=== PATIENT | male | born 1965 | race Caucasian/White ===

== ENCOUNTER 2016-12-25 08:03 | Inpatient (IN) ==
[2016-12-25] MEDS ORDERED: Nitroglycerin 0.4 MG TAB.SUBL SL ONE (08:11)
--- NOTE | 2016-12-25 08:15 | Emergency Department Note ---
Disposition Clinical Impression: NSTEMI (non-ST elevated myocardial infarction) Chest pain Qualifiers: Chest pain type: precordial pain Qualified Code(s): R07.2 - Precordial pain Disposition: Admitted As Inpatient Condition: Serious Time of Disposition: 11:12 Chest Pain HPI - General Chief Complaint: ED Chest Pain Stated Complaint: chest pain Source: patient Limitations: no limitations Vital Signs Reviewed: Yes Nursing Notes Reviewed: Yes - History of Present Illness HPI Narrative: Patient is a 51-year-old male history of 2 prior MIs and one stent placed [place] [address] Mcnulty at [facility]. Patient states he had chest pain while walking dog this morning. Chest pressuresubsternal without radiation. Patient states pain 8 out of 10 in severity. Patient history of diabetes, hypertension , CAD Patient states he has been noncompliant with his medications 3 months. Patient currently smokes one pack per day, admits to marijuana, alcohol use, denies illicit drug use. Severity scale (1-10): 6 - Related Data Home Medications Medication Instructions Recorded Confirmed Albuterol Sulfate [Ventolin Hfa] 18 gm IH PRN PRN 12/25/16 12/25/16 Aspirin [Lo-Dose Aspirin EC] 81 mg PO BID 12/25/16 12/25/16 Gabapentin [Neurontin] 300 mg PO TID 12/25/16 12/25/16 GlipiZIDE 5 mg PO BID 12/25/16 12/25/16 Lisinopril [Zestril] 40 mg PO DAILY 12/25/16 12/25/16 Nitroglycerin [Nitrostat] 0.4 mg SL PRN PRN 12/25/16 12/25/16 Quetiapine Fumarate [SEROquel] 100 mg PO HS 12/25/16 12/25/16 Simvastatin [Zocor] 20 mg PO HS 12/25/16 12/25/16 metFORMIN [Glucophage] 1,000 mg PO BIDWM 12/25/16 12/25/16 Allergies Allergy/AdvReac Type Severity Reaction Status Date / Time Sulfadiazine Allergy Hives Verified 12/25/16 08:14 All systems ED: reviewed and negative except as stated. Review of Systems: As Per HPI Constitutional: Denies: fever, chills Eyes: Denies: vision change ENT ED: Denies: congestion Cardiovascular: Reports: chest pain. Denies: palpitations Respiratory: Denies: cough, dyspnea, wheezes Gastrointestinal: Denies: abdominal pain, nausea, vomiting, diarrhea Chest Pain PMH - Past Medical History Medical history: Reports: arthritis, COPD, diabetes, myocardial infarction - Social History Smoking Status: Current every day smoker Alcohol use: Reports: occasionally Drug use: Reports: marijuana Physical Exam Patient is a 51-year-old male is alert and oriented 3 in no acute distress. Patient does appear uncomfortable secondary to chest pain. Patient currently not diaphoretic. - General Limitations: no limitations General appearance: alert, in no apparent distress - Head Head exam: atraumatic, normocephalic, normal inspection - Eye Eye exam: Present: normal appearance, PERRL, EOMI - ENT ENT exam: normal exam, normal oropharynx, mucous membranes moist - Neck Neck exam: Present: normal inspection, full ROM, trachea midline - Chest Chest inspection: Present: normal inspection, symmetric chest wall rise - Respiratory Respiratory exam: Present: normal lung sounds bilaterally - Cardiovascular Cardiovascular exam: Present: regular rate, normal rhythm, normal heart sounds - Abdominal Exam Abdominal exam: Present: soft, Non-Tender. Absent: tenderness, distention, guarding, rebound, rigidity - Extremities Exam Extremities exam: Present: normal inspection, full ROM. Absent: tenderness, pedal edema - Back Exam Back exam: Present: normal inspection, full ROM. Absent: tenderness, CVA tenderness (R), CVA tenderness (L) - Neurological Exam Neurological exam: Present: alert, oriented X3, CN II-XII intact - Skin Skin exam: Present: warm, dry, intact, normal color. Absent: diaphoresis Course - Reevaluation(s) Reevaluation #1: Patient was seen and examined. Troponin, CBC, BMP, coags, chest x-ray ordered nitroglycerin 1 ordered Time: 08:11 Reevaluation #2: Patient complaining of back pain 5/10 which he states is normal for him. Patient's chest pain decreasing. Started patient on nitroglycerin drip - Consultations Consultation #1: Dr. Pam Saha of interventional cardiology states that she agrees patient does not meet criteria after serial EKGs but ascending nurse practitioner down to assess him. She recommends doing another EKG to see if he have any changes to meet criteria right now. She does not think that he needs to be catheterized at this moment. Time: 09:57 Consultation #2: Dr. Mckeon the hospitalist has accepted pt for admission at 1043hrs Time: 10:43 Vital Signs Temperature 98.7 F 12/25/16 08:04 Pulse Rate 84 12/25/16 08:04 Respiratory Rate 16 12/25/16 08:04 Blood Pressure 141/85 12/25/16 08:04 O2 Sat by Pulse Oximetry 96 12/25/16 08:04 Temperature 97.7 F 12/25/16 19:44 Pulse Rate 74 12/25/16 19:44 Respiratory Rate 16 12/25/16 19:44 Blood Pressure 109/56 12/25/16 19:44 O2 Sat by Pulse Oximetry 98 12/25/16 19:44 Oxygen Delivery Oxygen Delivery Nasal Cannula Chest Pain - MDM Narrative Medical decision making narrative: Patient's condition concerning for ACS/MS, unstable angina NSTEMI, PE, aortic dissection, pneumonia, pneumothorax pneumonia less likely at this time. Patient is afebrile no cough congestion patient maintained O2 sats above 96 and denies pleuritic chest pain. Patient's chest pain without radiation to his back and has bilateral equal radial pulses. No pulse discrepancies in any extremity. Patient does have high risk cardiac history. Heart score is 7. EKG changes do not meet criteria. Serial EKGs were taken but did not show progression to STEMI. Troponin came back +0.05. Patient started on aspirin by EMS. Patient received 2 rounds nitroglycerin by EMS which reduced patient's pain from 8/10-6/ 10. Patient received 1 more round of nitroglycerin here in the ED and was started on a nitroglycerin drip at 30 mcg/m that was increased to 40 mcg/m. Patient's pain was reduced to 0. Patient has chronic back pain issues that he is experiencing but no longer has this chest pain. After discussion with Antwan Mcintosh of cardiology; it was adjusted to discuss case with Dr. Pam Saha of interventional cardiology. They assessed the patient and after assessment did not recommend catheterization. They stated that if patient's condition worsens they will consider catheterization. Patient is admitted and accepted to inpatient care by Dr. Mckeon the hospitalist. - Lab Data Result diagrams: 12/25/16 08:25 12/25/16 08:25 Lab Results 12/25/16 12/25/1617 Range/Units 08:25 08:25 08:25 WBC 15.5 H (4.3-11.1) K/mcL RBC 6.12 H (4.19-5.50) M/mcL Hgb 16.3 (12.9-16.9) g/dL Hct 49.3 (37.5-50.1) % MCV 80.6 L (83.0-100.0) fL MCH 26.6 L (28.0-33.3) pg MCHC 33.1 (31.6-35.5) g/dL RDW 13.2 (11.5-14.5) % Plt Count 216 (140-400) K/mcL MPV 10.9 (9.4-12.4) fL Immature Gran % 0.5 (0-4) % Seg Neutrophils % 81.3 % Lymphocytes % 12.2 % Monocytes % 4.3 % Eosinophils % 1.1 % Basophils % 0.6 % Neutrophils # 12.6 H (1.6-8.9) K/mcL Lymphocytes # 1.9 (0.6-4.6) K/mcL Monocytes # 0.7 (0.0-1.3) K/mcL Eosinophils # 0.2 (0.0-0.6) K/mcL Basophils # 0.1 (0.0-0.2) K/mcL Immature Plt Fraction 10.5 H (1.1-6.1) % PT 11.3 (9.4-12.1) Seconds INR 1.1 APTT 31.6 (26.0-36.0) Seconds Sodium 135 L (136-145) mEq/L Potassium 4.1 (3.5-4.5) mEq/L Chloride 102 (98-109) mEq/L Carbon Dioxide 23 (19-29) mEq/L BUN 7 L (8-26) mg/dL Creatinine 0.89 (0.72-1.25) mg/dL Est GFR ( Amer) > 60 (> 60) Est GFR (Non-Af Amer) > 60 (> 60) BUN/Creatinine Ratio 8 (6-26) Glucose 212 H (70-99) mg/dL Est Mean Plasma Glucose mg/dl Hemoglobin A1c ( - 5.6) % Calculated Osmolality 284 (280-300) Calcium 9.4 (8.6-10.8) mg/dL Troponin I (0-0.03) ng/mL Stool Occult Blood (Negative) 12/25/16 12/25/16 12/25/16 Range/Units 08:25 09:11 13:54 WBC (4.3-11.1) K/mcL RBC (4.19-5.50) M/mcL Hgb (12.9-16.9) g/dL Hct (37.5-50.1) % MCV (83.0-100.0) fL MCH (28.0-33.3) pg MCHC (31.6-35.5) g/dL RDW (11.5-14.5) % Plt Count (140-400) K/mcL MPV (9.4-12.4) fL Immature Gran % (0-4) % Seg Neutrophils % % Lymphocytes % % Monocytes % % Eosinophils % % Basophils % % Neutrophils # (1.6-8.9) K/mcL Lymphocytes # (0.6-4.6) K/mcL Monocytes # (0.0-1.3) K/mcL Eosinophils # (0.0-0.6) K/mcL Basophils # (0.0-0.2) K/mcL Immature Plt Fraction (1.1-6.1) % PT (9.4-12.1) Seconds INR APTT (26.0-36.0) Seconds Sodium (136-145) mEq/L Potassium (3.5-4.5) mEq/L Chloride (98-109) mEq/L Carbon Dioxide (19-29) mEq/L BUN (8-26) mg/dL Creatinine (0.72-1.25) mg/dL Est GFR ( Amer) (> 60) Est GFR (Non-Af Amer) (> 60) BUN/Creatinine Ratio (6-26) Glucose (70-99) mg/dL Est Mean Plasma Glucose 160 mg/dl Hemoglobin A1c 7.2 H ( - 5.6) % Calculated Osmolality (280-300) Calcium (8.6-10.8) mg/dL Troponin I 0.05 H* (0-0.03) ng/mL Stool Occult Blood Negative (Negative) 12/25/16 Range/Units 13:54 WBC (4.3-11.1) K/mcL RBC (4.19-5.50) M/mcL Hgb (12.9-16.9) g/dL Hct (37.5-50.1) % MCV (83.0-100.0) fL MCH (28.0-33.3) pg MCHC (31.6-35.5) g/dL RDW (11.5-14.5) % Plt Count (140-400) K/mcL MPV (9.4-12.4) fL Immature Gran % (0-4) % Seg Neutrophils % % Lymphocytes % % Monocytes % % Eosinophils % % Basophils % % Neutrophils # (1.6-8.9) K/mcL Lymphocytes # (0.6-4.6) K/mcL Monocytes # (0.0-1.3) K/mcL Eosinophils # (0.0-0.6) K/mcL Basophils # (0.0-0.2) K/mcL Immature Plt Fraction (1.1-6.1) % PT (9.4-12.1) Seconds INR APTT (26.0-36.0) Seconds Sodium (136-145) mEq/L Potassium (3.5-4.5) mEq/L Chloride (98-109) mEq/L Carbon Dioxide (19-29) mEq/L BUN (8-26) mg/dL Creatinine (0.72-1.25) mg/dL Est GFR ( Amer) (> 60) Est GFR (Non-Af Amer) (> 60) BUN/Creatinine Ratio (6-26) Glucose (70-99) mg/dL Est Mean Plasma Glucose mg/dl Hemoglobin A1c ( - 5.6) % Calculated Osmolality (280-300) Calcium (8.6-10.8) mg/dL Troponin I 0.78 H* (0-0.03) ng/mL Stool Occult Blood (Negative) - EKG Data EKG attestation: Yes I reviewed and interpreted this EKG. EKG results narrative: EKG taken for December 2016 and 803 hrs. shows a sinus rhythm with very mild ST elevation in lead 2 possibly 3 and aVF no reciprocal changes. Patient has T- wave inversion in aVL. Bruits EKG for comparison does not show elevations in II , III, and F area. That shows sinus rhythm at 68 bpm with some hyperacute T waves in V3 for the fact. No QT prolongation OR S4. This EKG was taken 2010. Repeat EKG taken at 0831 hours shows sinus rhythm shows an increase elevation in 23 and aVF but still does not meet criteria for STEMI. Decrease and T-wave inversion in aVL Repeat EKG taken at 0855 hrs. shows no change from previous Heart Score - Score History: Highly Suspicious EKG: Non Specific repolarisation Disturbance Age: 45-65 Risk Factors: Equal/Greater than 3 risk factor or history of atherosclerotic disease Troponin: 1-3x normal limit HEART Score Total: 7
[2016-12-25 08:32] LABS: Basophils # 0.1 K/mcL (0.0-0.2); Basophils % 0.6 %; Eosinophils # 0.2 K/mcL (0.0-0.6); Eosinophils % 1.1 %; Hematocrit 49.3 % (37.5-50.1); Hemoglobin 16.3 g/dL (12.9-16.9); Immature Granulocytes % 0.5 % (0-4); Immature Platelets 10.5 % (1.1-6.1); Lymphocytes # 1.9 K/mcL (0.6-4.6); Lymphocytes % 12.2 %; Mean Corpuscular HGB Conc 33.1 g/dL (31.6-35.5); Mean Corpuscular Hemoglobin 26.6 pg (28.0-33.3); Mean Corpuscular Volume 80.6 fL (83.0-100.0); Mean Platelet Volume 10.9 fL (9.4-12.4); Monocytes # 0.7 K/mcL (0.0-1.3); Monocytes % 4.3 %; Neutrophils # 12.6 K/mcL (1.6-8.9); Platelet Count 216 K/mcL (140-400); Red Blood Count 6.12 M/mcL (4.19-5.50); Red Cell Distribution Width 13.2 % (11.5-14.5); Segmented Neutrophils % 81.3 %
[2016-12-25] MEDS ORDERED: Nitroglycerin 25 MG/250 ML INFUS..BTL IVC ONE (08:38)
[2016-12-25 08:39] LABS: INR 1.1; Prothrombin Time 11.3 Seconds (9.4-12.1)
[2016-12-25 08:41] LABS: Activated Partial Thrombo Time 31.6 Seconds (26.0-36.0)
[2016-12-25 08:44] LABS: BUN/Creatinine Ratio 8 (6-26); Blood Urea Nitrogen 7 mg/dL (8-26); Calcium 9.4 mg/dL (8.6-10.8); Carbon Dioxide 23 mEq/L (19-29); Chloride 102 mEq/L (98-109); Glucose 212 mg/dL (70-99); Osmolality,Calculated 284 (280-300); Potassium 4.1 mEq/L (3.5-4.5); Sodium 135 mEq/L (136-145); eGFR For African Americans > 60 (> 60); eGFR For Non-African Americans > 60 (> 60)
[2016-12-25] MEDS ORDERED: 0.9 % Sodium Chloride 1,000 ML ONE (08:44)
[2016-12-25] MEDS ORDERED: Nitroglycerin 25 MG/250 ML INFUS..BTL IVC SCH ×2 (08:45→08:46)
[2016-12-25] MEDS ORDERED: 0.9 % Sodium Chloride 1,000 ML IVC SCH (09:00)
[2016-12-25] MEDS ORDERED: Ondansetron 4 MG/2 ML VIAL IVP PRN ×2 (09:12→13:36)
--- NOTE | 2016-12-25 09:57 | Emergency Department Note ---
START Narrative - START START: I examined this patient and my medical decision-making was reviewed with the Resident Physician. I agree with the documented findings, disposition and treatment plan as described except to the extent set forth below. Chest pain consistent with ischemia we will came up from sleep at 0400. Consistent with pain that he had in the past that led to stent placement. Serial EKGs were borderline, with about 0.[address] elevation in the inferior leads as well as the lateral precordial leads, but not meeting STEMI criteria, and with no reciprocal change. Pain improved and eventually resolved with nitroglycerin administration. A total of 3 EKGs never reached the criteria for STEMI. Initial troponin is mildly elevated. Case was discussed with the cardiology team, they have reviewed the EKGs, agree with management at this point. He will require catheterization, but not on an emergent basis. Critical care time: I was directly and primarily involved in the care of this patient for 35 minutes excluding procedures.
--- NOTE | 2016-12-25 10:07 | Cardiology Consult Note ---
Date of Encounter: 12/25/16 Time of Encounter: 10:05 Assessment and Plan (1) Chest pain Current Visit: Yes Status: Acute Per Cardiology: Somewhat atypical, however trop 0.05. CP relieved with NTG gtt. Has chronic CP at home for past 3 yrs since last LHC. Patient ran out of meds recently. Not using SL NTG at home. Qualifiers: Chest pain type: precordial pain Qualified Code(s): R07.2 - Precordial pain (2) NSTEMI (non-ST elevated myocardial infarction) Current Visit: Yes Status: Acute Per Cardiology: ECGs reviewed by Dr. Saha, no criteria for STEMI. Mild trop 0.05, cycle trops. CP free now on NTG gtt. Now on IV Hep gtt. Monitor CBC-- H&H stable. We' ll add aspirin, statin, beta katherine. Check echo. Plan for left heart catheterization in the morning. Currently chest pain-free. Patient verbalized understanding and agreed with plan. Discussed and reviewed with Dr. Antwan Saha. CR consult placed. (3) Medical non-compliance Current Visit: Yes Status: Acute Per Cardiology: Poor medical compliance. Reports off meds for 3 months. Questionable historian- - Reports follows with Dr. Mcnulty (Cardiology) past few months, however no records noted. Reports had echo this am, however not ordered yet. Will attempt to obtain LHC from [facility] reported 06/2013. Discussion w patient/family: The assessment and plan as outlined above was discussed with the patient and/or family members who expressed understanding and agreement. All questions were answered. Thank you for involving us in the care of your patient. Please call with any questions. History of Present Illness Consult date: 12/25/16 Consult reason: CP, Elevated Trop Chief complaint: CP History of present illness: Mr. Saunders is a 51 year old male with a relevant PMH: CAD, DM2, HTN, nicotine abuse. He reports last LHC 06/2013 after being sent to [facility] and reports stent at that time and another "2 blockages not bad enough to fix yet". Cardiology C/S for CP and elevated trop. Patient reports hx of CAD and last stenting 3 yrs ago. Report last stress test at [facility]-- reports negative.. Patient reports since last stenting he does have chronic chest pain that occurs about every 2-3 days that is his baseline. He reports he does not utilize nitroglycerin pills. Patient's indicates over the past few weeks even increased frequency of chest discomfort occurring on a daily basis namely at rest. He reports this morning he awakened with midsternal chest heaviness with pressure sitting on his chest. He reports about 8 out 10 chest pain. Upon exam today chest pain resolved on nitroglycerin drip. He does report some radiation to mid scapular region this morning. He reports his such and the ER because when he is walking his dog he broke out into a sweat with the chest pain. He reports his of breath with exertion about baseline. Does report overall increased fatigue. He reports out of medications the past 3 months. He reports he normally sees Dr. Mcnulty with cardiology and last saw him a few months ago-- however no records available for review. Patient does report occasional bright red blood in the toilet most recently a few days ago. Denies any dark tarry stools. Denies any current bleeding. Past Med Surg Social Fam HX - Past Medical History Attestation: Yes The following information was validated with the patient. Source: patient, old records reviewed, obtained from family Medical history: arthritis, COPD, diabetes, myocardial infarction - Social History Smoking Status: Current every day smoker Smokeless Tobacco Status: No Alcohol use: occasionally Drug use: marijuana Medications and Allergies Albuterol Sulfate [Ventolin Hfa] 18 gm IH PRN PRN 12/25/16 [History] Aspirin [Lo-Dose Aspirin EC] 81 mg PO BID 12/25/16 [History] Gabapentin [Neurontin] 300 mg PO TID 12/25/16 [History] GlipiZIDE 5 mg PO BID 12/25/16 [History] Lisinopril [Zestril] 40 mg PO DAILY 12/25/16 [History] Nitroglycerin [Nitrostat] 0.4 mg SL PRN PRN 12/25/16 [History] Quetiapine Fumarate [SEROquel] 100 mg PO HS 12/25/16 [History] Simvastatin [Zocor] 20 mg PO HS 12/25/16 [History] metFORMIN [Glucophage] 1,000 mg PO BIDWM 12/25/16 [History] 3 Allergy/AdvReac Type Severity Reaction Status Date / Time Sulfadiazine Allergy Hives Verified 12/25/16 08:14 All Systems Review: A 10-system review of systems was performed and is negative for pertinent findings except as documented above in the HPI. - Constitutional Constitutional: fatigue - Cardiovascular Cardiovascular: as per HPI, chest pain at rest, chest pain with exertion, diaphoresis, dyspnea on exertion - Gastrointestinal Gastrointestinal: hematochezia Physical Examination Vital Signs, Last 4 Hours Temp Pulse Resp BP Pulse Ox 12/25/16 09:44 80 140/69 99 12/25/16 09:17 76 127/82 99 12/25/16 09:00 89 16 126/83 100 12/25/16 08:36 78 18 151/79 98 12/25/16 08:04 98.7 F 84 16 141/85 96 Selected Entries 12/25/16 08:04 12/25/16 09:44 Pulse Rate 80 Blood Pressure 141/85 General: Conversant, No Apparent Distress HEENT: Atraumatic, Normocephaly, Mucus Membranes Moist Neck: No JVD, Normal carotid pulses Cardiac: Reg Rate and Rhythm, Normal S1 and S2, No Murmur Lungs: Normal Breath Sounds, No Wheeze, Rales, Rhonchi Neuro: Alert and responsive, No focal deficits noted Abdomen: Soft, Non-Tender Skin: No rashes noted on visualized skin Musculoskeletal: No Chest Wall Tenderness Extremities: No Clubbing, No Cyanosis, No Edema, Normal Pulses Results 12/25/16 08:25 12/25/16 08:25 Lab Results Laboratory Tests 12/25/16 12/25/16 12/25/16 08:25 08:25 08:25 WBC 15.5 H Hgb 16.3 Hct 49.3 Plt Count 216 INR 1.1 Creatinine 0.89 Est GFR (Non-Af Amer) > 60 Troponin I Stool Occult Blood 12/25/16 12/25/16 08:25 09:11 WBC Hgb Hct Plt Count INR Creatinine Est GFR (Non-Af Amer) Troponin I 0.05 H* Stool Occult Blood Negative ITS Impressions Chest X-Ray 12/25/16 08:11 IMPRESSION: No acute cardiac or pulmonary disease. D/ / Darius Coburn MD / Darius Coburn MD Interpreting Provider: Darius Coburn MD Active Medications Nitroglycerin (Nitroglycerin Premix 25 Mg/250 Ml) 25 mg in 250 mls @ 18 mls/hr IVC .[id number] TABITHA PRN Reason: 30 MCG/MIN Stop: 06/26/17 08:47 Last Infusion: 12/25/16 08:53 Dose: 40 mcg/min, 24 mls/hr Sodium Chloride (0.9 % Sodium Chloride) 1,000 mls @ 25 mls/hr IVC .Q24H [facility] Stop: 06/26/17 09:01 Last Admin: 12/25/16 08:55 Dose: 25 mls/hr - Imaging and Cardiology Echo: pending Cardiac cath: pending - EKG Interpretation EKG results cardiology: personally reviewed (has baseline ST eleavtions on ECG, slightly worse,, reviewed with Dr. Kristin Saha and not a suspected STEMI), other (SR on tele) Consult Discharge Plan - Plan
[2016-12-25] MEDS ORDERED: *HR* Heparin 5,000 UNIT/ML VIAL IVP PRN ×2 (11:13)
[2016-12-25] MEDS ORDERED: *HR* Heparin 5,000 UNIT/ML VIAL IVP ONE (11:13)
[2016-12-25] MEDS ORDERED: Heparin 25,000 UNIT/500 ML D5W 25,000 UNIT/500 ML MLS IVC SCH (11:15)
--- NOTE | 2016-12-25 13:24 | Internal Med History&Physical ---
Date of Encounter: 12/25/16 Time of Encounter: 13:19 Assessment and Plan (1) Type 2 diabetes mellitus Current visit: Yes Status: Acute Check hemoglobin A1c. Hold oral antidiabetic medication. Start diabetic diet. Start insulin sliding scale. Qualifiers: Diabetes mellitus complication status: without complication Diabetes mellitus mcfp insulin use: without exterminator use Qualified Code(s): E11.9 - Type 2 diabetes mellitus without complications (2) Essential hypertension Current visit: Yes Status: Acute Resume his lisinopril. Consider adding HCTZ if not controlled. (3) Hyperlipidemia Current visit: Yes Status: Acute Check lipid panel. Cardiac diet. Start Lipitor. Qualifiers: Hyperlipidemia type: unspecified Qualified Code(s): E78.5 - Hyperlipidemia , unspecified (4) Tobacco abuse Current visit: Yes Status: Acute I have advised smoking cessation. We will provide nicotine replacement therapy for the duration of this hospitalization. (5) DVT prophylaxis Current visit: Yes Status: Acute No additional DVT prophylaxis necessary while on heparin drip. (6) NSTEMI (non-ST elevated myocardial infarction) Current visit: Yes Status: Acute Patient had typical chest pain which has now resolved and elevated troponin level consistent with non-ST elevation [place]. We will treat him with aspirin, metoprolol, lisinopril, Lipitor and IV heparin drip. We will continue nitro drip titration per protocol. We will obtain echocardiogram. Nothing by mouth after midnight for possible cardiac catheterization. Serial troponin. Repeat EKG. I appreciate cardiology recommendations. Care was discussed with cardiology service. (7) Medical non-compliance Current visit: Yes Status: Acute We will reinforce the need for medication compliance and facilitate a follow-up visit with a PCP post discharge. Internal Medicine - H&P: HPI Chief complaint: Chest pain Admitted From: Emergency Dept Plans for Post Hospital Care: Home History of present illness: Mr. Saunders is a 51 year old male with past medical history significant for coronary artery disease status post [place] 2 and stent placement, hypertension, hyperlipidemia and type 2 diabetes who presented to the hospital due to chest pain. He states that chest pain started yesterday, was first on and off, progressively got worse overnight. This morning while walking his dog he experienced severe substernal, squeezing like chest pain associated with diaphoresis which made him call an ambulance. He was given nitroglycerin which helped improve the chest pain, chest pain has completely resolved with nitro drip. Currently he is chest pain free. Troponin was mildly elevated. Review of systems: Positive for back pain, chronic lower extremity pain, occasional bright red blood per rectum secondary to hemorrhoids, anxiety and depression. The remainder of 10 point review of systems was negative. Family history pertinent for premature coronary artery disease in both parents as well as his brother who had a heart transplant at age 38. He of lymphoma at age 58. Social history: Patient lives by himself, he smokes one pack of cigarettes a day , drinks alcohol occasionally, smokes marijuana but denies any other recreational drug use. He states that he has been moving and transitioning between family doctors and therefore he has not been taking any of his medications for the last 8 months. Past Med Surg Social Fam HX - Past Medical History Medical history: arthritis, COPD, diabetes, myocardial infarction Psychiatric history: anxiety - Social History Smoking Status: Current every day smoker Smokeless Tobacco Status: No Alcohol use: occasionally Drug use: marijuana Internal Medicine - H&P: Meds Albuterol Sulfate [Ventolin Hfa] 18 gm IH PRN PRN 12/25/16 [History] Aspirin [Lo-Dose Aspirin EC] 81 mg PO BID 12/25/16 [History] Gabapentin [Neurontin] 300 mg PO TID 12/25/16 [History] GlipiZIDE 5 mg PO BID 12/25/16 [History] Lisinopril [Zestril] 40 mg PO DAILY 12/25/16 [History] Nitroglycerin [Nitrostat] 0.4 mg SL PRN PRN 12/25/16 [History] Quetiapine Fumarate [SEROquel] 100 mg PO HS 12/25/16 [History] Simvastatin [Zocor] 20 mg PO HS 12/25/16 [History] metFORMIN [Glucophage] 1,000 mg PO BIDWM 12/25/16 [History] 3 Allergy/AdvReac Type Severity Reaction Status Date / Time Sulfadiazine Allergy Hives Verified 12/25/16 08:14 All Systems PM: A 10-system review of systems was performed and is negative for pertinent findings except as documented above in the HPI. - Constitutional Vitals: Temp Pulse Resp BP Pulse Ox 98.0 F 77 16 136/80 99 12/25/16 11:34 12/25/16 13:05 12/25/16 11:34 12/25/16 13:05 12/25/16 13:05 General appearance: Present: A&O X 3 - Eye Eye exam: Present: PERRL, conjuntiva pink, sclera anicteric Pupils: Present: PERRL - Respiratory Respiratory exam: Present: CTAB. Absent: accessory muscle use, rales, rhonchi, wheezes - Cardiovascular Cardiovascular exam: Present: RRR, +S1, +S2. Absent: diastolic murmur, gallop, rubs, systolic murmur - GI/Abdominal GI/Abdominal exam: Present: normal bowel sounds, soft, no peritoneal signs. Absent: distended, tenderness - Extremities Exam Extremities exam: Present: warm, radial pulses palpable and symmetrical. Absent : calf tenderness, cyanotic, pedal edema - Neurological Exam Neurological exam: Present: CN II-XII intact, oriented X3, no focal deficits. Absent: pronater drift, facial droop, speech deficit - Skin Skin exam: Present: dry, intact Internal Med - H&P Results - Labs CBC & Chem 7: 12/25/16 08:25 12/25/16 08:25 - EKG Data -: EKG Interpreted by Myself EKG shows normal: sinus rhythm, intervals, QRS complexes, ST-T waves
[2016-12-25] MEDS ORDERED: Nitroglycerin 0.4 MG TAB.SUBL SL PRN (13:36)
[2016-12-25] MEDS ORDERED: *HR* Dextrose 50 % in Water (Syg) 50 ML SYRINGE IVP PRN (13:41)
[2016-12-25] MEDS ORDERED: D5% in Water 1,000 ML IVC PRN (13:41)
[2016-12-25] MEDS ORDERED: Dextrose Gel 15 GM PO PRN ×2 (13:41)
[2016-12-25] MEDS ORDERED: Albuterol 2.5 MG/3 ML NEBULIZER IH PRN (13:44)
[2016-12-25] MEDS ORDERED: Insulin LISPRO 300 UNITS/3 ML VIAL SQ SCH (13:45)
[2016-12-25] MEDS: Aspirin 81 MG TAB.CHEW PO SCH (14:17)
[2016-12-25 14:18] LABS: Hemoglobin A1C 7.2 %
[2016-12-25] MEDS: Lisinopril 20 MG TABLET PO SCH (14:19)
[2016-12-25] MEDS: Nitroglycerin 25 MG/250 ML INFUS..BTL IVC SCH ×2 (15:40→23:43)
[2016-12-25] MEDS: *HR* Morphine 2 MG/ML SYRINGE IVP PRN (17:00)
[2016-12-25] MEDS: Insulin LISPRO 300 UNITS/3 ML VIAL SQ SCH ×3 (17:06→21:02)
[2016-12-25 17:48] LABS: Amphetamine Screen,Urine Negative ng/mL (Cutoff=1000); Barbiturate Screen,Urine Negative ng/mL (Cutoff=200); Benzodiazepines Screen,Urine Negative ng/mL (Cutoff=200); Cannabinoid Screen,Urine Positive ng/mL (Cutoff = 50); Cocaine Screen,Urine Negative ng/mL (Cutoff= 300); Opiate Screen,Urine Negative ng/mL (Cutoff=300); Phencyclidine Screen,Urine Negative ng/mL (Cutoff=25)
[2016-12-25] MEDS ORDERED: Aspirin Enteric Coated 81 MG Tablet PO SCH (21:00)
[2016-12-26] MEDS: *HR* Morphine 2 MG/ML SYRINGE IVP PRN ×5 (00:03→19:44)
[2016-12-26 03:48] LABS: Basophils # 0.1 K/mcL (0.0-0.2); Basophils % 0.6 %; Eosinophils # 0.2 K/mcL (0.0-0.6); Eosinophils % 1.8 %; Hematocrit 44.5 % (37.5-50.1); Immature Granulocytes % 0.3 % (0-4); Lymphocytes # 3.7 K/mcL (0.6-4.6); Lymphocytes % 27.8 %; Mean Corpuscular Hemoglobin 26.8 pg (28.0-33.3); Mean Corpuscular Volume 81.2 fL (83.0-100.0); Mean Platelet Volume 11.8 fL (9.4-12.4); Monocytes % 7.4 %; Neutrophils # 8.3 K/mcL (1.6-8.9); Platelet Count 206 K/mcL (140-400); Red Blood Count 5.48 M/mcL (4.19-5.50); Red Cell Distribution Width 13.2 % (11.5-14.5); Segmented Neutrophils % 62.1 %
[2016-12-26 03:50] LABS: Hemoglobin 14.7 g/dL (12.9-16.9); Prothrombin Time 11.2 Seconds (9.4-12.1)
[2016-12-26 03:53] LABS: Activated Partial Thrombo Time 73.3 Seconds (26.0-36.0)
[2016-12-26 04:04] LABS: Alanine Aminotransferase 12 Units/L (0-55); Albumin 3.4 g/dL (3.5-5.0); Albumin/Globulin Ratio 1.1 (1.1-2.2); Alkaline Phosphatase 84 Units/L (38-126); Aspartate Amino Transferase 15 Units/L (5-34); BUN/Creatinine Ratio 14 (6-26); Bilirubin,Total 0.6 mg/dL (0.2-1.2); Blood Urea Nitrogen 14 mg/dL (8-26); Calcium 9.2 mg/dL (8.6-10.8); Carbon Dioxide 26 mEq/L (19-29); Chloride 101 mEq/L (98-109); Chol/HDL Ratio 3.4 (0-4.9); Cholesterol 123 mg/dL (< 200); Globulin 3.2 g/dL (2.4-3.5); Glucose 169 mg/dL (70-99); HDL Cholesterol 36 mg/dL (40-59); LDL Cholesterol,Calculated 60 mg/dL (0-99); Magnesium 1.6 mg/dL (1.6-2.6); Osmolality,Calculated 284 (280-300); Sodium 135 mEq/L (136-145); Total Protein 6.6 g/dL (6.0-8.3); Triglycerides 137 mg/dL (< 150); eGFR For African Americans > 60 (> 60); eGFR For Non-African Americans > 60 (> 60)
--- NOTE | 2016-12-26 08:07 | Event Note ---
Date of Encounter: 12/26/16 Time of Encounter: 08:10 - Cardiology Event Note Laboratory Tests 12/25/16 12/25/16 12/25/16 08:25 13:54 19:14 Hgb Hct INR Troponin I 0.05 H* 0.78 H* 1.22 H* 12/26/16 12/26/16 03:04 03:04 Hgb 14.7 D Hct 44.5 INR 1.0 Troponin I Patient reports chest aching 5/10. On IV NTG gtt and Hep gtt. For [facility] this am. All questions answered. Clarification: patient has seen Dr. Mcnulty ([facility] in the past), but has been recently following a Dr. Mcnulty ( [facility] in [place]).
[2016-12-26] MEDS ORDERED: 0.9 % Sodium Chloride 1,000 ML ONE ×2 (08:42→09:21)
[2016-12-26] MEDS ORDERED: Heparin 1,000 UNITS/500 mL NS 500 ML ONE (08:42)
[2016-12-26] MEDS ORDERED: *HR* Heparin 10,000 UNIT/10 ML VIAL ONE (08:42)
[2016-12-26] MEDS ORDERED: Nitroglycerin 1,000 MCG/10 ML VIAL IV ONE ×2 (08:43→09:21)
[2016-12-26] MEDS: Lisinopril 20 MG TABLET PO SCH (08:45)
[2016-12-26] MEDS: Aspirin 81 MG TAB.CHEW PO SCH (08:46)
[2016-12-26] MEDS: Insulin LISPRO 300 UNITS/3 ML VIAL SQ SCH ×7 (08:49→20:07)
[2016-12-26] MEDS ORDERED: *HR* Midazolam HCl 2 MG/2 ML VIAL ONE (09:21)
--- NOTE | 2016-12-26 09:30 | Pre-Sedation Evaluation ---
Pre-sedation evaluation - Pre-sedation checklist Date of procedure: 12/26/16 Recent Vitals: Last Vital Signs Temp 98.0 F 12/26/16 07:14 Pulse 71 12/26/16 08:50 Resp 18 12/26/16 07:14 BP 123/110 12/26/16 08:00 Pulse Ox 98 12/26/16 07:14 H&P (including ROS) documented in medical record: Yes Previous reaction to sedatives/anesthetics: No Dietary Status: NPO after Midnight Airway Assessment: Patient can open mouth completely, TMJ function normal Dentition: No loose teeth or bridges Possible difficult airway: No ASA Classification *see protocol: CLASS III-Severe systemic disease Plan of Care: Pt appropriate candidate for procedure/moderate/conscious sedation , Risks/benefits of procedure/sedation discussed w/ patient/family, If not NPO; Risk of intake outweiged by necessity to perform procedure
[2016-12-26] MEDS ORDERED: *HR* Bivalirudin 250 MG VIAL IVC ONE (10:11)
[2016-12-26] MEDS ORDERED: *HR* Ticagrelor 90 MG TABLET ONE (10:29)
--- NOTE | 2016-12-26 11:00 | Invasive Diagnostic Lab Proc ---
Name: Huseyin Saunders Date of Study: 12/26/2016 Date: 1965 Ht: 66.9in Medical Record#: [id number] Age: 51 Wt: 130.07lb Gender: Male BSA: 1.68 Order #: [id number] BMI: 20.42 Physicians Procedure Physician: Geovanny Ace DO Referring MD: Referring MD: Staff Name Position Time In Ila Bruner RN Monitor 09:27 AM Kassie Pritchard RN Dairy Helper 09:27 AM Diamond Angel RT Scrub 09:27 AM Padma Ventura RT (R) 09:27 AM Michael Mccracken RT (R) 09:27 AM Indications Indication Non-Stemi Procedures Performed Procedure L HRT ARTERY/VENTRICLE ANGIO PRQ CARD SANTA STENT W/ANGIO 1 VSL Angio w/Cath Iliac Artery S&I Pre-Procedure Checklist Informed consent is complete signed and on chart. H&P is on chart. ID band is on and ID verified with patient. Patient NPO for procedure The procedure was described for the patient and questions were answered. Blood Pressure: 112/71 ECG is on chart. Rhythm: NSR Plan of Care Patient will tolerate the procedure without complications. Adequate level of comfort will be maintained. Hemodynamics will remain stable Patient will recover from procedure without complications. Respiratory function will be maintained. Cardiac rhythm will remain stable. Patient temperature will be maintained. Patient and/or family have verbalized understanding of the procedure. Patient Education Chief Complaint/Reason for Test: Cardiac Cath Developmental Category: Adult (18-64 years) Developmentally Appropriate for Age: Yes Learning Barriers: None Education Needs: Procedure Education Method: Verbal Information Taught: Cardiac Cath Educational Evaluation: Able to repeat information Intravenous Access Time IV Size Location DC'd Fluid/Drip Rate Units RN 09:23 AM 20g 1 1/4" Patent On Arrival 0.9NaCl 25 ml/hr Kassie Pritchard RN Allergies Sulfadiazine Vital Signs Time BP (mmHg) HR (bpm) O2 Sat. RR (bpm) LOC 09:24 AM 112 / 71 68 98 % 18 09:30 AM / % 5 = Fully awake and oriented or at pre-proc level 10:01 AM / % 4 = Oriented but drowsy 10:01 AM / % 4 = Oriented but drowsy 10:17 AM / % 5 = Fully awake and oriented or at pre-proc level 09:32 AM 138 / 85 65 99 % 16 09:37 AM 134 / 69 62 98 % 24 09:42 AM 134 / 70 69 100 % 17 09:47 AM 133 / 71 61 100 % 18 09:52 AM 136 / 84 66 100 % 13 09:57 AM 140 / 78 60 100 % 10 10:02 AM 140 / 77 58 100 % 26 10:07 AM 142 / 76 65 100 % 12 10:12 AM 130 / 80 63 100 % 6 10:17 AM 149 / 88 64 100 % 11 10:23 AM 145 / 98 63 100 % 17 10:27 AM 168 / 105 66 100 % 16 10:32 AM 173 / 101 71 100 % 16 10:37 AM 175 / 102 75 100 % 9 Procedural Medications Time Medication Dose Units Method Given By 09:30 AM Oxygen 2 L/min nasal cannula Kassie Pritchard RN 09:33 AM Versed 2 mg Intravenous Kassie Pritchard RN 09:43 AM Lidocaine 2% 10 ml Subcutaneous Geovanny Ace DO 09:54 AM Lidocaine 2% 7 ml Subcutaneous Geovanny Aec DO 10:14 AM Angiomax 0.75mg/kg bolus: 9 ml Intravenous Kassie Pritchard RN 10:18 AM Angiomax 1.75mg/kg/hr: 21 ml Intravenous Kassie Pritchard RN 10:29 AM Angiomax 1.75mg/kg/hr: ml Dc'd Kassie Pritchard RN 10:30 AM Brilinta 180 mg Orally Kassie Pritchard RN ASA Classification: CLASS III- Severe systemic disease (i.e. prior AMI, diabetes with vascular complications, morbid obesity) [place] Score Preprocedure Postprocedure Activity 2- Moves 4 extremities sustained head lift Activity 2- Moves 4 extremities sustained head lift Circulation 2- SBP +/= 20 points of pre-anesthetic level Circulation 2- SBP +/= 20 points of pre-anesthetic level Consciousness 2- Awake and alert oriented x 3 Consciousness 2- Awake and alert oriented x 3 O2 Saturation 2- Able to maintain O2 satruation of 92% on room air O2 Saturation 2- Able to maintain O2 satruation of 92% on room air Respiratory 2- Able to deep breathe and cough well Respiratory 2- Able to deep breathe and cough well Total Score 10 Total Score 10 Contrast Agent: Isovue Diagnostic Contrast: 100 ml Total Contrast: 100 ml Fluoro Dose: 371 mGy Procedure Log Time Note Enter By 09:26 AM Pt arrived to company laborer 2 [facility] 09[facility]: AM Physician arrived : [facility] 09:27 AM Ila Bruner RN Position: Monitor Time in: [facility] 09:27 AM Kassie Pritchard RN Position: Dairy Helper Time in: : [facility] 09:27 AM Diamond Angel RT Position: Scrub Time in: [facility] 09: AM Padma Ventura RT (R) Position: Time in: [facility] 09:27 AM Michael Mccracken RT (R) Position: Time in: : [facility] 09:27 AM Patient charges- Angio tray pack, Navilyst 3mm J, Pulse Oximetry and ACIST tubing and transducer [facility] 09:27 AM Case Delayed No [facility] 09:29 AM Meet and greet completed [facility] 09:29 AM Sign in performed according to hospital policy. [facility] 09:29 AM Procedure start 09:29 [facility] 09:30 AM Time: 09:30 Oxygen on at 2 L/min per nasal cannula by Kassie Pritchard RN [facility] 09:30 AM Time: 09:30 Patient comfortable and pain free: Yes [facility] AM Time: 09:30LOC: 5 = Fully awake and oriented or at pre-proc level [facility] 09:30 AM CathStat 09:31 AM Vitals capture started with the following parameters, Patient=Adult, Interval=5 min, Initial Quwdprev=107 mmHg, Deflation Rate=5 mmHg, Cuff placed on Right Arm 09:32 AM HR=65 bpm, HYWW=925/85 mmhg, SpO2=99.0 %, Resp=16 B/min, Comment=Sinus Anant 09:32 AM Hair removed from procedure site in procedure lab using clippers. Bilateral groin prepped with Chloraprep by Padma Ventura (R), safety strap applied then patient was draped. Skin intact. [facility] 09:33 AM Recorded ECG: HR=56 Condition=Condition 1 09:34 AM Time: 09:33 Versed 2 mg Intravenous Given by Kassie Pritchard RN [facility] 09:37 AM HR=62 bpm, SIDS=296/69 mmhg, SpO2=98.0 %, Resp=24 B/min, Comment=Sinus Arrythmia 09:41 AM ASA Class CLASS III- Severe systemic disease (i.e. prior AMI, diabetes with vascular complications, morbid obesity) [facility] 09:42 AM Pressure channel 2 zeroed. 09:42 AM HR=69 bpm, JBAQ=107/70 mmhg, JnD1=091.0 %, Resp=17 B/min, Comment=Sinus Arrythmia 09:42 AM Time out performed according to hospital policy [facility] 09:44 AM Time: 09:43 10 ml Lidocaine 2% to right groin Subcutaneous Given by Geovanny Ace, DO [facility] 09:47 AM HR=61 bpm, BSRG=987/71 mmhg, RlZ7=965.0 %, Resp=18 B/min, Comment=Sinus Arrythmia 09:49 AM Access obtained by percutaneous puncture. 5Fr 11cm Cordis Lauren sheath placed in right Femoral vein. [id number] [facility] 09:51 AM Pressure channel 2 zeroed. 09:52 AM HR=66 bpm, HZYV=687/84 mmhg, PtC8=648.0 %, Resp=13 B/min, Comment=Sinus Arrythmia 09:53 AM Unsuccessful access attempt # 1 into the right Femoral artery. Manual pressure applied to achieve hemostasis.. [facility] 09:53 AM Unsuccessful access attempt # 2 into the right Femoral artery. Manual pressure applied to achieve hemostasis.. [facility] 09:54 AM Time: 09:54 7 ml Lidocaine 2% to left groin Subcutaneous Given by Geovanny Ace, DO [facility] 09:57 AM HR=60 bpm, CWBR=593/78 mmhg, LvC2=942.0 %, Resp=10 B/min, Comment=Sinus Arrythmia 10:01 AM Time: 10:01 Patient comfortable and pain free: Yes [facility] 10:01 AM Time: 10:01LOC: 4 = Oriented but drowsy [facility] 10:02 AM Unsuccessful access attempt # 1 into the left Femoral artery. Manual pressure applied to achieve hemostasis.. [facility] 10:02 AM HR=58 bpm, PHYB=354/77 mmhg, CjB6=175.0 %, Resp=26 B/min, Comment=Sinus Arrythmia 10:03 AM Access obtained by percutaneous puncture. 6Fr 10cm Terumo [place] sheath placed in left Femoral artery. [id number] [facility] 10:03 AM 6Fr FR 4 catheter inserted over the wire [facility] 10:04 AM Catheter selectively placed in left ventricle [facility] 10:04 AM Bolus angiogram of left Ventricle complete: hand injected [facility] 10:04 AM Recorded Pressure: LV, HR=63, Condition=Condition 1 (Left Ventricle) LV 140/11/20 10:05 AM Recorded Pressure: LV, Ao, HR=63, Condition=Condition 1 (Left Ventricle) LV 138/-5/17, (Aorta) Ao 137/67/92 10:05 AM RCA angiography performed in multiple views. [facility] 10:06 AM Recorded Pressure: Ao, HR=63, Condition=Condition 1 (Aorta) Ao 143/73/98 10:07 AM HR=65 bpm, UCEB=435/76 mmhg, KtU5=326.0 %, Resp=12 B/min, Comment=Sinus Arrythmia 10:07 AM Catheter removed [facility] 10:07 AM 6Fr FL 4 catheter inserted over the wire [facility] l[facility] 10:08 AM LCA angiography performed in multiple views. [facility] 10:08 AM Recorded Pressure: Ao, HR=54, Condition=Condition 1 (Aorta) Ao 140/68/94 10:09 AM Recorded Pressure: Ao, HR=64, Condition=Condition 1 (Aorta) Ao 140/67/91 10:11 AM Catheter removed [facility] 10:11 AM Coronary Dominance: right [facility] 10:11 AM PCI Status Urgent [facility] 10:11 AM PCI Indication: PCI for high risk Non-STEMI or unstable angina [facility] 10:12 AM HR=63 bpm, HMMX=125/80 mmhg, QrT7=626.0 %, Resp=6 B/min, Comment=Sinus Arrythmia 10:12 AM PCI lesion in Proximal LAD. [facility] 10:13 AM 6Fr JL4 Runway guide catheter was used to cannulate the PCI vessel successfully. reused? No [facility] 10:13 AM Inflation device was opened. [facility] 10:13 AM unable to engage [facility] 10:13 AM Guide catheter removed intact. [facility] 10:14 AM 6Fr XB LAD 3.5 Talmo Bright-Tip guide catheter was used to cannulate the PCI vessel successfully. reused? No [facility] 10:14 AM Time: 10:17 Angiomax 0.75mg/kg bolus: 9 ml Intravenous Given by Kassie Pritchard RN Sterling pump [facility] 10:15 AM .014 ChoICE PT Extra Support 300cm guide wire across target lesion- successful. reused? No [facility] 10:16 AM Recorded Pressure: Ao, HR=70, Condition=Condition 1 (Aorta) Ao 152/79/106 10:16 AM Time: 10:01 Patient comfortable and pain free: Yes [facility] 10:17 AM Time: 10:LOC: 4 = Oriented but drowsy [facility] 10:17 AM HR=64 bpm, BIAU=102/88 mmhg, TxX0=780.0 %, Resp=11 B/min, Comment=Sinus Arrythmia 10:18 AM Time: 10:18 Angiomax 1.75mg/kg/hr: 21 ml Intravenous Given by Kassie Pritchard RN Sterling pump [facility] 10:18 AM 2.25mm x 24mm Synergy drug-eluting stent across target lesion- successful Lot [id number] [facility] 10:19 AM Recorded Pressure: Ao, HR=58, Condition=Condition 1 (Aorta) Ao 153/84/108 10:19 AM Stent deployed @ 18 rima for 20 seconds [facility] 10:20 AM Stent delivery system removed intact. [facility] 10:21 AM 2.25 mm x 20mm NC Emerge balloon across target lesion- successful. reused? No [facility] 10:22 AM Balloon inflated @ 20 rima for 22 seconds [facility] 10:23 AM HR=63 bpm, MZAB=581/98 mmhg, YtC4=112.0 %, Resp=17 B/min, Comment=Sinus Arrythmia 10:23 AM Balloon inflated @ 20 rima for 12 seconds [facility] 10:24 AM Balloon catheter removed intact. [facility] 10:24 AM Guide wire removed intact. [facility] 10:26 AM 5Fr IM catheter inserted over the wire [id number] [facility] 10:27 AM Lesion found in Proximal RCA. Pre Stenosis: 40 Pre KARLENE Flow: 3: Complete and Brisk Flow/Perfusion [facility] 10:27 AM Lesion found in Mid RCA. Pre Stenosis: 40 Pre KARLENE Flow: 3: Complete and Brisk Flow/Perfusion [facility] 10:27 AM Lesion found in Distal RCA. Pre Stenosis: 40 Pre KARLENE Flow: 3: Complete and Brisk Flow/Perfusion [facility] 10:27 AM HR=66 bpm, SPSS=083/105 mmhg, ZjI8=486.0 %, Resp=16 B/min, Comment=Sinus Arrythmia 10:28 AM Right Coronary, Right Posterior Descending Arteries with Right Posterolateral and Acute Marginal branches with 40 % stenosis. [facility] 10:28 AM Lesion found in Proximal LAD. Pre Stenosis: 30 Pre KARLENE Flow: 3: Complete and Brisk Flow/Perfusion [facility] 10:29 AM Time: 10:29 Angiomax 1.75mg/kg/hr: ml Dc'd Given by Kassie Pritchard RN Sterling pump [facility] 10:29 AM Bolus angiogram of right iliacl complete: hand injected [facility] 10:29 AM Bolus angiogram of left iliac complete: hand injected [facility] 10:30 AM Time: 10:30 Brilinta 180 mg Orally Given by [facility]chard [facility] AM Time: 10:16 Patient comfortable and pain free: Yes [facility] 10:32 AM HR=71 bpm, XGQU=148/101 mmhg, UjV9=685.0 %, Resp=16 B/min, Comment=Sinus Arrythmia 10:32 AM Time: 10:17LOC: 5 = Fully awake and oriented or at pre-proc level [facility] 10:34 AM Venous sheath pulled using manual compression and V+ Pad for 15 minutes by Diamond Angel [facility] 10:37 AM Procedure completed at 10:37 [facility] 10:37 AM HR=75 bpm, JOSZ=681/102 mmhg, JzD2=328.0 %, Resp=9 B/min, Comment=Sinus Arrythmia 10:37 AM Sign out completed: Radiation Dose 371.27 mGy Fluoro Time: 6.9 Isovue 370 - 200ml contrast 100 ml given by Geovanny Ace DO. Complications: NoneCardiac Rehab Consult needed: YesConfirmed administered medications: Yes [facility] 10:37 AM Isovue 370 - 200ml,1 Bottle(s) used. [facility] 10:38 AM Sheath left in place to be pulled on floor/holding area left groin [facility] 10:40 AM Post ECG Sinus Arrhythmia [facility] 10:40 AM Post Blood Pressure 175/102 [facility] 10:41 AM 10:41 Post Pulses Bilateral DP & PT 1+ [facility] 10:41 AM Information taught Cardiac Cath and PCI [facility] 10:41 AM Education needs Procedure, Plan of Care, and Safe & Effective Use of Medications [facility] 10:41 AM Learning barriers :None [facility] 10:41 AM Education Methods Verbal [facility] 10:41 AM Education evaluation Able to repeat information [facility] 10:45 AM Site status No bleeding/hematoma - Rt Groin as reported by Diamond Angel RT at 10:45 [facility] 10:45 AM Opsite applied to both groins [facility] 10:45 AM Report given to Jovita WILHELM Pt taken to 2N Room #10. 10:45 [facility] 10:46 AM Plavix, Effient or Brilinta given Yes [facility] 10:46 AM Delay to floor No [facility] 10:46 AM Patient out of room: 10:46 [facility] 10:46 AM Family placed in . [facility] 10:46 AM Family not available [facility] 10:46 AM Complications: None [facility] 10:46 AM Fluoro Time: 6.9 [facility] 10:46 AM Isovue 370 - 200ml contrast 100 ml given by Geovanny Ace DO. [facility] 10:46 AM Radiation Dose 371.27 mGy [facility] 10:47 AM Lesion found in Proximal LAD. Pre Stenosis: 80 Pre KARLENE Flow: 3: Complete and Brisk Flow/Perfusion in stent [facility] 10:47 AM Proximal Left Anterior Descending Coronary Artery with 80% stenosis. [facility] Complications Complication None None Hemodynamics Pressures Site Systolic/A Wave Diastolic/V Wave Mean LV 140 11 20 LV 138 -5 17 AO 137 67 92 AO 143 73 98 AO 140 68 94 AO 140 67 91 AO 152 79 106 AO 153 84 108 Post Procedure Information Blood Pressure: 175/102 mmHg Rhythm: Sinus Arrhythmia Site Checks Time Location Status Staff Sheath In? Note 10:45 AM Rt Groin No bleeding/hematoma Diamond Angel RT Pulses Time Site Pre-Procedure Post-Procedure Note Bilateral radial 2+ Rt DP/pt 1+ Lt DP/pt 2+ 10:41:00 AM Bilateral DP & PT 1+ Updated by Ila Bruner RN on 12/26/2016 10:53:22 AM electronically signed on 12/26/2016 10:54:12 AM with status of Final
[2016-12-26] MEDS: 0.9 % Sodium Chloride 1,000 ML IVC SCH ×2 (11:08→16:49)
[2016-12-26] MEDS ORDERED: GI Cocktail 40 ML EACH PO ONE (11:09)
[2016-12-26] MEDS ORDERED: *HR* Atropine Sulfate 1 MG/ML VIAL ONE (13:53)
--- NOTE | 2016-12-26 14:02 | Vascular/Endovasc Consult Note ---
Date of Encounter: 12/26/16 Time of Encounter: 13:10 Assessment and Plan (1) Atherosclerosis of [place] arteries of extremities with intermittent claudication, bilateral legs Current Visit: Yes Status: Chronic The pathophysiology and natural history of was discussed with the patient and all questions were answered. The patient reports bilateral lower extremity disabling claudication. He denies rest pain, ulceration or gangrene. He has a dminished pulse exam. His angiogram reveals bialteral external iliac and common femoral artery occlusions. The patient will require revascularization. At this time, continue with daily ASA and Brilinta. The patient will follow-up in vascular clinic after discharge for further evaluation and to discuss his options. (2) NSTEMI (non-ST elevated myocardial infarction) Current Visit: Yes Status: Acute The patient underwent LHC with coronary stent placement today. He currently denies chest pain or shortness of breath. 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 (5) Hyperlipidemia Current Visit: Yes Status: Chronic Qualifiers: Hyperlipidemia type: mixed hyperlipidemia Qualified Code(s): E78.2 - Mixed hyperlipidemia (6) Tobacco abuse Current Visit: Yes Status: Chronic He was counseled regarding smoking cessation. - History of Present Illness Consult date: 12/26/16 Requesting physician: Josefina Villalobos Consult reason: Peripheral vascular disease Chief complaint: Peripheral vascular disease with disabling claudication History of present illness: Mr. Saunders is a 51 year old male with a history of hypertension, diabetes, coronary artery disease and tobacco abuse. The patient admitted to [facility] with chest pain. He underwent a left heart cath today and reportedly had difficult access at the right common femoral artery. Attempts were then made to cannulate the left common femoral artery and ultmiately the wire entered into the left common iliac artery. The patient then underwent a left heart cath with coronary stent placement. The patient was then transferred to the floor and vascular surgery was consulted for further evaluation. The patient reports that he has been experiencing dissabling bilateral lower exteremity claudication for more than 1 year. He reports that his right leg is affected greater than his left. He reports that his symptoms occur at less than 100 feet. He reports that he must stop and rest for approximately 10 minutes to recover. He denies rest pain, ulceration or gangrene. He denies chest pain or shortness of breath. Past Med Surg Social Fam HX - Past Medical History Medical history: arthritis, COPD, diabetes, myocardial infarction Psychiatric history: anxiety - Social History Smoking Status: Current every day smoker Smokeless Tobacco Status: No Alcohol use: occasionally Drug use: marijuana Medications and Allergies Albuterol Sulfate [Ventolin Hfa] 18 gm IH PRN PRN 12/25/16 [History] Aspirin [Lo-Dose Aspirin EC] 81 mg PO BID 12/25/16 [History] Gabapentin [Neurontin] 300 mg PO TID 12/25/16 [History] GlipiZIDE 5 mg PO BID 12/25/16 [History] Lisinopril [Zestril] 40 mg PO DAILY 12/25/16 [History] Nitroglycerin [Nitrostat] 0.4 mg SL PRN PRN 12/25/16 [History] Quetiapine Fumarate [SEROquel] 100 mg PO HS 12/25/16 [History] Simvastatin [Zocor] 20 mg PO HS 12/25/16 [History] metFORMIN [Glucophage] 1,000 mg PO BIDWM 12/25/16 [History] 3 Allergy/AdvReac Type Severity Reaction Status Date / Time Sulfadiazine Allergy Hives Verified 12/25/16 08:14 All Systems Review: A 10-system review of systems was performed and is negative for pertinent findings except as documented above in the HPI. Exam Vital Signs, Last 4 Hours Temp Pulse Pulse Resp BP Pulse Ox 12/26/16 12:45 78 78 151/111 12/26/16 12:30 78 78 162/125 12/26/16 12:15 74 74 155/106 12/26/16 12:00 78 78 157/91 12/26/16 11:34 98.0 F 12/26/16 11:30 82 82 169/101 12/26/16 11:15 72 72 175/94 98 12/26/16 11:00 97.9 F 72 74 10 171/102 98 General: Present: Conversant, No Apparent Distress Neck: Absent: JVD, Left Carotid bruit, Right Carotid bruit Cardiac: Present: Reg Rate and Rhythm Lungs: Present: Normal Breath Sounds, No Wheeze, Rales, Rhonchi Neuro: Present: Alert and responsive, No focal deficits noted, Motor nerves grossly intact, Sensory nerves grossly intact Abdomen: Present: Soft, Non-tender. Absent: Masses Vascular: Present: Normal capillary refill, Pulse, absent (bilateral femoral, popliteal and tibial pulses are absent), Other (left femoral sheath in place). Absent: Cyanosis, Edema Skin: Absent: No rashes noted on visualized skin Musculoskeletal: Present: No Chest Wall Tenderness Consult Discharge Plan - Plan Referrals: Geovanny Ace DO [Partnered Physician] - (Cardiology will call patient at home with appointment) Bhavin Forrest MD [Partnered Physician] - 01/08/17 2:20 pm Lloyd Ramsey DO [Resident] - 01/01/17 10:20 am
--- NOTE | 2016-12-26 16:47 | Internal Med Progress Note ---
Date of Encounter: 12/26/16 Time of Encounter: 11:45 - Assessment and plan (1) NSTEMI (non-ST elevated myocardial infarction) Current Visit: Yes Status: Acute Assessment and plan: Status post left heart catheterization with PTCA and drug-eluting stent to proximal LAD at site of in-stent restenosis. Patient is now on Brilinta and aspirin. Heparin has been stopped. We will continue to follow cardiology recommendations. High risk for complications. (2) Intermittent claudication of right lower extremity due to atherosclerosis Current Visit: Yes Status: Acute Assessment and plan: With possible underlying iliac stenosis. Consult vascular surgery for further recommendations. Plan to get Arterial Dopplers tomorrow. (3) Medical non-compliance Current Visit: Yes Status: Acute Assessment and plan: Counseled about importance of taking medications as prescribed. We will make arrangements with the social group worker so that he does not have any factors impeding compliance. (4) Type 2 diabetes mellitus Current Visit: Yes Status: Chronic Assessment and plan: Poorly controlled. We will monitor blood sugars and adjust insulin regimen accordingly. 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 Likely related to procedure and pain related to it. Will monitor blood pressure and continue current medications. We will adjust antihypertensive regimen if remains uncontrolled. (6) Hyperlipidemia Current Visit: Yes Status: Chronic Assessment and plan: LDL remains at goal. Continue statin. Qualifiers: Hyperlipidemia type: mixed hyperlipidemia Qualified Code(s): E78.2 - Mixed hyperlipidemia (7) Tobacco abuse Current Visit: Yes Status: Chronic (8) DVT prophylaxis Current Visit: Yes Status: Acute Assessment and plan: With subcutaneous heparin - Subjective Interval history: Patient underwent left heart catheterization today. Has returned back to his bed postprocedure. Complains of pain and burning in his chest. Also has pain in his both lower extremities. He was unable to be catheterized using the right femoral approach due to stenosis on his iliac artery. He was then catheterized through the left femoral artery. He underwent PTCA with drug- eluting stent placed in the proximal LAD. There was a previous stent in place with severe in-stent stenosis. He denies any dizziness or lightheadedness. No focal weakness. No speech abnormalities. No vision changes. Patient does describe a history of intermittent claudication especially in his right lower extremity - Constitutional Vitals: Temp Pulse Resp BP Pulse Ox 98.1 F 83 20 144/76 100 12/26/16 16:05 12/26/16 16:15 12/26/16 15:00 12/26/16 16:15 12/26/16 15:00 General appearance: Present: cooperative, mild distress, A&O X 3, pleasant, answers questions appropriately - Neck Neck exam general surgery: Present: supple, trachea midline. Absent: lymphadenopathy - Respiratory Respiratory exam: Present: CTAB. Absent: accessory muscle use, rales, rhonchi, wheezes - Cardiovascular Cardiovascular exam: Present: RRR, +S1, +S2. Absent: diastolic murmur, gallop, rubs, systolic murmur - GI/Abdominal GI/Abdominal exam: Present: normal bowel sounds, soft, no peritoneal signs. Absent: distended, tenderness - Extremities Exam Extremities exam: Present: warm, radial pulses palpable and symmetrical. Absent : calf tenderness, cyanotic, pedal edema Additional comments: femoral sheath present in left femoral region. - Neurological Exam Neurological exam: Present: alert, oriented X3, no focal deficits. Absent: facial droop, speech deficit - Skin Skin exam: Present: dry, intact Internal Medicine: Result - Labs CBC & Chem 7: 12/26/16 03:04 12/26/16 03:04 Labs: Short CBC 12/26/16 Range/Units 03:04 WBC 13.4 H (4.3-11.1) K/mcL Hgb 14.7 D (12.9-16.9) g/dL Hct 44.5 (37.5-50.1) % Plt Count 206 (140-400) K/mcL Neutrophils # 8.3 (1.6-8.9) K/mcL BMP 12/26/16 03:04 Sodium 135 L Potassium 4.0 Chloride 101 Carbon Dioxide 26 BUN 14 Creatinine 0.97 Glucose 169 H Calcium 9.2 Cardiac Enzymes 12/25/16 Range/Units 19:14 Troponin I 1.22 H* (0-0.03) ng/mL Liver Function 12/26/16 Range/Units 03:04 Total Bilirubin 0.6 (0.2-1.2) mg/dL AST 15 (5-34) Units/L ALT 12 (0-55) Units/L Alkaline Phosphatase 84 (38-126) Units/L Albumin 3.4 L (3.5-5.0) g/dL - ABG Interpretation ABG results: PT/INR, D-dimer PT 11.2 Seconds (9.4-12.1) 12/26/16 03:04 Consult Discharge Plan - Plan Referrals: Geovanny Ace DO [Partnered Physician] - (Cardiology will call patient at home with appointment) Bhavin Forrest MD [Partnered Physician] - 01/08/17 2:20 pm Lloyd Ramsey DO [Resident] - 01/01/17 10:20 am
[2016-12-26] MEDS: *HR* Heparin 5,000 UNIT/ML VIAL SQ SCH (17:07)
[2016-12-26] MEDS: *HR* Ticagrelor 90 MG TABLET PO SCH (19:44)
[2016-12-27] MEDS: 0.9 % Sodium Chloride 1,000 ML IVC SCH (02:41)
[2016-12-27] MEDS: *HR* Morphine 2 MG/ML SYRINGE IVP PRN (02:41)
[2016-12-27] MEDS: *HR* Heparin 5,000 UNIT/ML VIAL SQ SCH (06:15)
[2016-12-27 06:49] LABS: Basophils # 0.1 K/mcL (0.0-0.2); Basophils % 0.6 %; Eosinophils # 0.1 K/mcL (0.0-0.6); Eosinophils % 0.9 %; Hematocrit 46.4 % (37.5-50.1); Hemoglobin 15.6 g/dL (12.9-16.9); Immature Granulocytes % 0.2 % (0-4); Lymphocytes # 2.4 K/mcL (0.6-4.6); Lymphocytes % 22.2 %; Mean Corpuscular HGB Conc 33.6 g/dL (31.6-35.5); Mean Corpuscular Hemoglobin 26.7 pg (28.0-33.3); Mean Corpuscular Volume 79.3 fL (83.0-100.0); Mean Platelet Volume 11.8 fL (9.4-12.4); Monocytes # 1.1 K/mcL (0.0-1.3); Neutrophils # 7.1 K/mcL (1.6-8.9); Platelet Count 180 K/mcL (140-400); Red Blood Count 5.85 M/mcL (4.19-5.50); Red Cell Distribution Width 13.2 % (11.5-14.5); Segmented Neutrophils % 66.1 %
[2016-12-27 07:03] LABS: BUN/Creatinine Ratio 11 (6-26); Blood Urea Nitrogen 9 mg/dL (8-26); Calcium 9.3 mg/dL (8.6-10.8); Carbon Dioxide 27 mEq/L (19-29); Chloride 103 mEq/L (98-109); Glucose 172 mg/dL (70-99); Osmolality,Calculated 283 (280-300); Potassium 4.1 mEq/L (3.5-4.5); Sodium 135 mEq/L (136-145); eGFR For African Americans > 60 (> 60); eGFR For Non-African Americans > 60 (> 60)
[2016-12-27] MEDS: *HR* Ticagrelor 90 MG TABLET PO SCH (08:18)
[2016-12-27] MEDS: Lisinopril 20 MG TABLET PO SCH (08:19)
[2016-12-27] MEDS: Aspirin 81 MG TAB.CHEW PO SCH (08:22)
[2016-12-27] MEDS: Insulin LISPRO 300 UNITS/3 ML VIAL SQ SCH ×4 (08:25→12:00)
--- NOTE | 2016-12-27 09:03 | Cardiology Progress Note ---
Date of Encounter: 12/27/16 Time of Encounter: 09:01 Assessment and Plan (1) NSTEMI (non-ST elevated myocardial infarction) Current Visit: Yes Status: Acute Peak troponin 1.22. S/P [facility] yesterday revealed severe 1V CAD, EF 40%, Successful PTCA/SANTA of pLAD. Previous stent in pLAD with severe ISR that was intervened on. DAPT (ASA and Brilinta) uninterrupted x 1 year. Pt verbalizes understanding. If Brilinta becomes unaffordable will switch to Plavix. He is aware to let us know. Continue Statin, BB, PAXTON-I. Tele reviewed--5 beat run NSVT. BB increased. Echo EF 50-55%, mild LVDD, no significant valvular dysfunction. Pt denies chest pain or dyspnea. Right and left femoral access sites healing well. No bleeding, hematoma or ecchymosis noted. Cardiology signing off. Reconsult PRN. Follow-up as outpt in 1 week. Will coordinate. (2) CAD (coronary artery disease) Current Visit: Yes Status: Acute Successful PTCA/SANTA to pLAD--previous stent in pLAD with severe ISR that was intervened on. ASA, Brilinta, Statin, BB, PAXTON-i. Qualifiers: Coronary Disease-Associated Artery/Lesion type: saxman artery [place] vs. transplanted heart: saxman heart Associated angina: without angina Qualified Code(s): I25.10 - Atherosclerotic heart disease of saxman coronary artery without angina pectoris (3) Essential hypertension Current Visit: Yes Status: Chronic BP 150s-160s systolic overnight. Increase BB to Lopressor 25mg BID. Continue Lisinopril 40mg daily. Adjust as necessary. (4) Tobacco abuse Current Visit: Yes Status: Chronic Smoking cessation counseling given. 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 Follow-up with vascular as outpt. Discussion w patient/family: The assessment and plan as outlined above was discussed with the patient and/or family members who expressed understanding and agreement. All questions were answered. Thank you for involving us in the care of your patient. Please call with any questions. I will discuss all the above with Dr. Salazar and make changes as necessary. Subjective Principal diagnosis: NSTEMI Interval history: S/P [facility] yesterday revealed severe 1 vessel CAD. Successful PTCA/SANTA to pLAD. Previous stent in pLAD with severe ISR that was intervened on. EF estimated to be 40% on LHC. Echo shows EF 50-55%. His angiogram revealed bialteral external iliac and common femoral artery occlusions, seen by vascular surgery who reports pt will require revascularization and recommend outpt follow-up. Pt denies chest pain or dyspnea this AM. No acute cardiac complaints. Objective Vital Signs, Last 4 Hours Temp Pulse Resp BP Pulse Ox 12/27/16 08:15 68 12/27/16 07:48 98.2 F 64 16 156/84 99 Vital Signs Temp Pulse Pulse Resp BP Pulse Ox 12/27/16 08:15 68 12/27/16 07:48 98.2 F 64 16 156/84 99 12/27/16 03:00 98 F 70 153/012 98 12/26/16 23:00 97.9 F 82 154/93 99 12/26/16 19:11 97.6 F 80 153/86 98 12/26/16 19:00 84 12/26/16 18:17 80 152/84 12/26/16 17:12 83 153/87 12/26/16 16:15 83 144/76 12/26/16 16:05 98.1 F 12/26/16 15:45 87 155/77 12/26/16 15:15 82 156/98 12/26/16 15:00 83 20 164/94 100 12/26/16 14:45 85 152/87 12/26/16 14:35 83 150/78 12/26/16 14:30 86 163/91 12/26/16 14:25 82 163/91 12/26/16 14:20 82 82 159/86 12/26/16 13:45 74 84 171/95 12/26/16 13:30 81 81 164/95 12/26/16 13:15 84 84 166/93 12/26/16 13:00 80 80 165/92 12/26/16 12:45 78 78 151/111 12/26/16 12:30 78 78 162/125 12/26/16 12:15 74 74 155/106 12/26/16 12:00 78 78 157/91 12/26/16 11:34 98.0 F 12/26/16 11:30 82 82 169/101 12/26/16 11:15 72 72 175/94 98 12/26/16 11:00 97.9 F 72 74 10 171/102 98 Intake and Output 12/26/16 12/27/16 12/27/16 23:59 07:59 15:59 Intake Total 1264 / 1264 1000 / 1000 240 / 240 Output Total 610 / 610 1050 / 1050 0 / 0 Balance 654 / 654 -50 / -50 240 / 240 Intake: IV Fluids 584 / 584 1000 / 1000 0.9 % Sodium Chloride 1, 584 / 584 1000 / 1000 000 ML @ 100 mls/hr IVC . Q10H [facility] Rx#:[id number] Oral 680 / 680 240 / 240 Output: Urine 610 / 610 1050 / 1050 0 / 0 Other: Meal Dinner Percent of Meal Consumed 100% Weight 60.2 kg Blood Glucose* 121 165 Patient Weight 12/27/16 23:59 Weight 60.2 kg General: Conversant, No Apparent Distress HEENT: Atraumatic, Normocephaly, Mucus Membranes Moist Neck: No JVD, Normal carotid pulses Cardiac: Reg Rate and Rhythm, Normal S1 and S2, No Murmur Lungs: Normal Breath Sounds, No Wheeze, Rales, Rhonchi Neuro: Alert and responsive, No focal deficits noted Abdomen: Soft, Non-Tender Skin: Other (right and left femoral access sites healing well. No bleeding, hematoma or ecchymosis noted.) Musculoskeletal: No Chest Wall Tenderness Extremities: No Clubbing, No Cyanosis, No Edema, Normal Pulses Results 12/27/16 06:34 12/27/16 06:34 Lab Results 12/27/16 12/27/16 06:34 06:34 WBC 10.8 Hgb 15.6 Hct 46.4 Plt Count 180 Sodium 135 L Potassium 4.1 Chloride 103 Carbon Dioxide 27 BUN 9 Creatinine 0.83 Glucose 172 H Calcium 9.3 Short CBC 12/27/16 Range/Units 06:34 WBC 10.8 (4.3-11.1) K/mcL Hgb 15.6 (12.9-16.9) g/dL Hct 46.4 (37.5-50.1) % Plt Count 180 (140-400) K/mcL Neutrophils # 7.1 (1.6-8.9) K/mcL BMP 12/27/16 Range/Units 06:34 Sodium 135 L (136-145) mEq/L Potassium 4.1 (3.5-4.5) mEq/L Chloride 103 (98-109) mEq/L Carbon Dioxide 27 (19-29) mEq/L BUN 9 (8-26) mg/dL Creatinine 0.83 (0.72-1.25) mg/dL Glucose 172 H (70-99) mg/dL Calcium 9.3 (8.6-10.8) mg/dL Active Medications Albuterol Sulfate (Proventil Neb) 2.5 mg IH [id number] PRN; Protocol PRN Reason: Shortness Of Breath/Wheezing Stop: 06/26/17 13:45 Aspirin (Aspirin) 81 mg PO DAILY TABITHA Stop: 06/26/17 13:16 Last Admin: 12/27/16 08:22 Dose: 81 mg Atorvastatin Calcium (Lipitor) 80 mg PO HS TABITHA Stop: 06/26/17 21:01 Last Admin: 12/26/16 19:44 Dose: 80 mg Dextrose/Water (Dextrose 50% (Syg)) 25 ml IVP AD PRN PRN Reason: Hypoglycemia Stop: 06/26/17 13:42 Glucagon (Glucagen) 1 mg IM ONCE PRN PRN Reason: Hypoglycemia Stop: 06/26/17 13:42 Glucose (Gluctose) 15 gm PO ONCE PRN PRN Reason: Hypoglycemia Stop: 06/26/17 13:42 Glucose (Gluctose) 30 gm PO ONCE PRN PRN Reason: Hypoglycemia Stop: 06/26/17 13:42 Heparin Sodium (Porcine) (Heparin) 5,000 unit SQ Q12HCO TABITHA Stop: 06/27/17 18:01 Last Admin: 12/27/16 06:15 Dose: 5,000 unit Dextrose (Dextrose 5%) 1,000 mls @ 100 mls/hr IVC .Q10H PRN PRN Reason: HYPOGLYCEMIA Stop: 06/26/17 13:42 Sodium Chloride (0.9 % Sodium Chloride) 1,000 mls @ 100 mls/hr IVC .Q10H TABITHA Stop: 06/27/17 11:01 Last Admin: 12/27/16 02:41 Dose: 100 mls/hr Insulin Human Lispro (Humalog) 2 units 0.05 units/kg (2 units) SQ TIDWM [facility] Stop: 06/26/17 17:01 Last Admin: 12/27/16 08:25 Dose: 2 units Insulin Human Lispro (Humalog) 0 units SQ TIDAC [facility] PRN Reason: Protocol Stop: 06/26/17 17:01 Last Admin: 12/27/16 08:26 Dose: 2 units Insulin Human Lispro (Humalog) 0 units SQ HS [facility] PRN Reason: Protocol Stop: 06/26/17 21:01 Last Admin: 12/26/16 20:07 Dose: Not Given Lisinopril (Zestril) 40 mg PO DAILY [facility] Stop: 06/26/17 13:46 Last Admin: 12/27/16 08:19 Dose: 40 mg Metoprolol Tartrate (Lopressor) 25 mg PO BID [facility] Stop: 06/28/17 21:01 Morphine Sulfate (Morphine Sulfate) 2 mg IVP Q2H PRN PRN Reason: Chest Pain Stop: 06/26/17 13:37 Last Admin: 12/27/16 02:41 Dose: 2 mg Nitroglycerin (Nitroglycerin) 0.4 mg SL Q5MIN PRN PRN Reason: Chest Pain Stop: 06/26/17 13:37 Ondansetron HCl (Zofran) 4 mg IVP Q6HR PRN; Protocol PRN Reason: Nausea Stop: 06/26/17 13:37 Last Admin: 12/27/16 00:00 Dose: 4 mg Ticagrelor (Brilinta) 90 mg PO BID [facility] Stop: 06/27/17 21:01 Last Admin: 12/27/16 08:18 Dose: 90 mg - Imaging and Cardiology Echo: report reviewed Cardiac cath: report reviewed - EKG Interpretation EKG results cardiology: other (24 hr tele AVG HR 74, SR, 5 beat run NSVT) Consult Discharge Plan - Plan Additional Instructions: RISK FACTORS: STOP SMOKING: If you smoke, STOP. Smoking or tobacco use significantly increases your risk of heart disease because nicotine causes the arteries to narrow or constrict. It also causes fats to stick to the artery. Your chances of having a heart attack are greatly increased if you continue to smoke. For more information, call the education line for smoking cessation 2-153-ZKGEIPT EAT A LOW FAT/CHOLESTEROL/SODIUM DIET: This diet may help reduce your chances of having a heart attack. LIFTING: Avoid lifting anything more than 10 pounds for 5-7 days Prior to straining, laughing, sneezing and/or coughing, apply manual pressure directly over insertion site. ACTIVITY: You may walk or climb stairs as tolerated You can resume sexual activity as tolerated In general, you are encouraged to engage in a minimum of 30 minutes or more of moderate intensity physical activity, such as brisk walking, daily or at least 3 -4 times weekly BATHING Do not submerge the site into water (bath tub, hot tub, swimming pool) for 1 week. This can be a source for infection into the blood stream. You may shower after 24 hours SITE CARE: After 24 hours, you may remove the dressing and leave the site open to air. Keep the site clean and dry. Clean gently and pat dry. You can expect bruising and tenderness that gradually resolve within a week or two. Return to work as instructed per your physician Resume driving as instructed per physician Keep all scheduled follow up appointments Resume medications as instructed IMPORTANT: If prescribed a Platelet Aggregation Inhibitor such as, Plavix, Brilinta or Effient: Duration of therapy is minimum one year These medications are often used in combination with Aspirin in prevention of future heart attacks Never discontinue unless consult with your Fire Investigation Manager STROKE (CVA) Risk factors for a stroke are: Age, cigarette smoking, diabetes, excessive alcohol consumption, family history, high blood pressure, overweight, physical inactivity, prior stroke, heart attack, diagnosis of carotid artery stenosis or other artery disease. Warning signs: Sudden numbness or weakness of the face, arm or leg; especially on one side of the body, sudden confusion, trouble speaking or understanding, sudden trouble seeing in one or both eyes, sudden trouble walking, dizziness, loss of balance or coordination, sudden severe headache with no cause. Call 911 or go to the Emergency Room. CONGESTIVE HEART FAILURE: If you have been diagnosed with Congestive Heart Failure (CHF) and your symptoms return, make an appointment with your physician Weigh yourself daily. Notify your physician if you have a weight gain of two or more pounds in one day or five or more pounds in one week. If you experience any difficulty breathing, please call 911 BLEEDING: Although the risk of bleeding is minimal, it can happen. If you have any bleeding from the site, apply firm pressure above the puncture site for 10-15 minutes. If the bleeding does not stop, continue manual pressure and call 911 Contact your physician if: You develop a fever greater than 101 degrees Fahrenheit Your site becomes reddened or has any drainage You have an increase in pain or burning at the site or if a large knot forms at the site. If you experience chest pain, shortness of breath, dizziness, or extreme tiredness, stop the activity and rest. Please notify your physicians office if you experience any of these symptoms and they are not relieved by rest please call 911! Referrals: Geovanny Ace DO [Partnered Physician] - (Cardiology will call patient at home with appointment) Bhavin Forrest MD [Partnered Physician] - 01/08/17 2:20 pm Lloyd Ramsey DO [Resident] - 01/01/17 10:20 am
[2016-12-27 11:09] VITALS: BP 161/86
--- NOTE | 2016-12-27 11:52 | Discharge Summary ---
Date of Encounter: 12/27/16 Time of Encounter: 09:45 - Discharge Diagnosis (1) NSTEMI (non-ST elevated myocardial infarction) Priority: Primary Status: Acute (2) Intermittent claudication of right lower extremity due to atherosclerosis Priority: Secondary Status: Acute (3) Medical non-compliance Priority: Secondary Status: Acute (4) Type 2 diabetes mellitus Priority: Secondary Status: Chronic Qualifiers: Diabetes mellitus complication status: without complication Diabetes mellitus predatory animal exterminator insulin use: without predatory animal exterminator use Qualified Code(s): E11.9 - Type 2 diabetes mellitus without complications (5) Essential hypertension Priority: Secondary Status: Chronic (6) Hyperlipidemia Priority: Secondary Status: Chronic Qualifiers: Hyperlipidemia type: mixed hyperlipidemia Qualified Code(s): E78.2 - Mixed hyperlipidemia (7) Tobacco abuse Priority: Secondary Status: Chronic (8) DVT prophylaxis Priority: Secondary Status: Acute - Discharge Medications Prescriptions: Albuterol Sulfate [Ventolin Hfa] 18 gm IH Q6H PRN #1 aerosol PRN Reason: Dyspnea Aspirin [Lo-Dose Aspirin EC] 81 mg PO DAILY #30 tab Atorvastatin [Lipitor] 80 mg PO HS #60 tab glipiZIDE [Glucotrol] 5 mg PO BID #60 tablet Lisinopril [Zestril] 40 mg PO DAILY #60 tablet metFORMIN [Glucophage] 1,000 mg PO BIDWM #120 tab Metoprolol [Lopressor] 25 mg PO BID #60 tab Nitroglycerin [Nitrostat] 0.4 mg SL PRN PRN #20 tab PRN Reason: Chest Pain Quetiapine Fumarate [Seroquel] 100 mg PO HS #30 tab Ticagrelor [Brilinta] 90 mg PO BID #60 tab Home Medications: Albuterol Sulfate [Ventolin Hfa] 18 gm IH Q6H PRN #1 aerosol 12/27/16 [Rx] Aspirin [Lo-Dose Aspirin EC] 81 mg PO DAILY #30 tab 12/27/16 [Rx] Atorvastatin [Lipitor] 80 mg PO HS #60 tab 12/27/16 [Rx] Lisinopril [Zestril] 40 mg PO DAILY #60 tablet 12/27/16 [Rx] Metoprolol [Lopressor] 25 mg PO BID #60 tab 12/27/16 [Rx] Nitroglycerin [Nitrostat] 0.4 mg SL PRN PRN #20 tab 12/27/16 [Rx] Quetiapine Fumarate [Seroquel] 100 mg PO HS #30 tab 12/27/16 [Rx] Ticagrelor [Brilinta] 90 mg PO BID #60 tab 12/27/16 [Rx] glipiZIDE [Glucotrol] 5 mg PO BID #60 tablet 12/27/16 [Rx] metFORMIN [Glucophage] 1,000 mg PO BIDWM #120 tab 12/27/16 [Rx] Allergies/Adverse Reactions: 3 Allergy/AdvReac Type Severity Reaction Status Date / Time Sulfadiazine Allergy Hives Verified 12/25/16 08:14 Procedures/tests Complete & Pending: Procedures Performed prior 72 hours Category Date Time Status EV ankle brachial index Routine Y 12/27/16 Completed Date of admission: 12/25/16 14:14 Primary care physician: PCP NONE Consults: 12/26/16 11:45 Consult to Vascular Surgery [CONS] Routine Consulting Provider: Vascular Surgery Latoya Reason for Consult: Right leg claudication/ right iliac stenosis Time Notified: 11:47 Call Completed: Yes Discharging clinician: Josefina Villalobos Anticipated date of discharge: 12/27/16 - Patient Status Disposition: Home, Self-Care Condition: Good Functional capacity at discharge: independent ambulation Overall status at discharge: patient is back to baseline - Discharge Instructions Instructions: Metoprolol (By mouth), Atorvastatin (By mouth), Ticagrelor (By mouth), Myocardial Infarction (DC), How to Stop Smoking (GEN), Diabetes Mellitus Type 2 in Adults (DC), Peripheral Vascular Disorders (DC) Follow Up With: Geovanny Ace DO [Partnered Physician] - (Cardiology will call patient at home with appointment.) Bhavin Forrest MD [Partnered Physician] - 01/08/17 2:20 pm Lloyd Ramsey DO [Resident] - 01/01/17 10:20 am Additional Instructions: RISK FACTORS: STOP SMOKING: If you smoke, STOP. Smoking or tobacco use significantly increases your risk of heart disease because nicotine causes the arteries to narrow or constrict. It also causes fats to stick to the artery. Your chances of having a heart attack are greatly increased if you continue to smoke. For more information, call the education line for smoking cessation [id number] EAT A LOW FAT/CHOLESTEROL/SODIUM DIET: This diet may help reduce your chances of having a heart attack. LIFTING: Avoid lifting anything more than 10 pounds for 5-7 days Prior to straining, laughing, sneezing and/or coughing, apply manual pressure directly over insertion site. ACTIVITY: You may walk or climb stairs as tolerated You can resume sexual activity as tolerated In general, you are encouraged to engage in a minimum of 30 minutes or more of moderate intensity physical activity, such as brisk walking, daily or at least 3 -4 times weekly BATHING Do not submerge the site into water (bath tub, hot tub, swimming pool) for 1 week. This can be a source for infection into the blood stream. You may shower after 24 hours SITE CARE: After 24 hours, you may remove the dressing and leave the site open to air. Keep the site clean and dry. Clean gently and pat dry. You can expect bruising and tenderness that gradually resolve within a week or two. Return to work as instructed per your physician Resume driving 12/31/16 Keep all scheduled follow up appointments Resume medications as instructed IMPORTANT: If prescribed a Platelet Aggregation Inhibitor such as, Plavix, Brilinta or Effient: Duration of therapy is minimum one year These medications are often used in combination with Aspirin in prevention of future heart attacks Never discontinue unless consult with your Hydrogen Plant Operator STROKE (CVA) Risk factors for a stroke are: Age, cigarette smoking, diabetes, excessive alcohol consumption, family history, high blood pressure, overweight, physical inactivity, prior stroke, heart attack, diagnosis of carotid artery stenosis or other artery disease. Warning signs: Sudden numbness or weakness of the face, arm or leg; especially on one side of the body, sudden confusion, trouble speaking or understanding, sudden trouble seeing in one or both eyes, sudden trouble walking, dizziness, loss of balance or coordination, sudden severe headache with no cause. Call 911 or go to the Emergency Room. CONGESTIVE HEART FAILURE: If you have been diagnosed with Congestive Heart Failure (CHF) and your symptoms return, make an appointment with your physician Weigh yourself daily. Notify your physician if you have a weight gain of two or more pounds in one day or five or more pounds in one week. If you experience any difficulty breathing, please call 911 BLEEDING: Although the risk of bleeding is minimal, it can happen. If you have any bleeding from the site, apply firm pressure above the puncture site for 10-15 minutes. If the bleeding does not stop, continue manual pressure and call 911 Contact your physician if: You develop a fever greater than 101 degrees Fahrenheit Your site becomes reddened or has any drainage You have an increase in pain or burning at the site or if a large knot forms at the site. If you experience chest pain, shortness of breath, dizziness, or extreme tiredness, stop the activity and rest. Please notify your physicians office if you experience any of these symptoms and they are not relieved by rest please call 911! - Diet and Activity Activity: as per the cardiac rehab Diet: diabetic diet, low fat, low cholesterol, low salt diet Hospital course: Mr. Saunders is a 51 year old male patient with history of diabetes mellitus type 2, essential hypertension, hyperlipidemia, Coronary artery disease who was hospitalized here with non-ST elevation MN. He was evaluated by cardiology and recommended left heart catheterization. Patient underwent the procedure yesterday and was found to have an occluded proximal LAD lesion with in-stent restenosis of prior stent. He underwent PTCA with a new drug-eluting stent placed in the same location. His echocardiogram showed an EF of 50-55%. During the procedure, he was noted to have right-sided iliac stenosis. Patient has also been complaining of intermittent claudication and so vascular surgery was consulted. At this time, given that he just underwent angiography, they did not recommend intervention and would follow up with him as outpatient to manage this condition. He is feeling much better today and has been cleared for discharge by cardiology. He has been stressed described to avoid further complications of similar nature. I have also represcribed all his medications so that he has them available to him at time of discharge. He will follow up with cardiology and vascular surgery with his primary care provider for further management. - Time Spent with Patient Total time spent providing and/or coordinating discharge services: Greater than 30 minutes (40 min) - Constitutional Vitals: Temp Pulse Resp BP Pulse Ox 98.3 F 62 18 161/86 98 12/27/16 11:08 12/27/16 11:08 12/27/16 11:08 12/27/16 11:08 12/27/16 11:08 General appearance: Present: cooperative, A&O X 3, pleasant, no acute distress, answers questions appropriately - Neck Neck exam general surgery: Present: supple, trachea midline. Absent: lymphadenopathy - Cardiovascular Cardiovascular exam: Present: RRR, +S1, +S2. Absent: diastolic murmur, gallop, rubs, systolic murmur - GI/Abdominal GI/Abdominal exam: Present: normal bowel sounds, soft, no peritoneal signs. Absent: distended, tenderness - Extremities Exam Extremities exam: Present: tenderness (left groin), warm, radial pulses palpable and symmetrical. Absent: calf tenderness, cyanotic, pedal edema
--- NOTE | 2016-12-27 12:35 | Electrocardiograph Report ---
[place] [address] Test Date: 2016-12-25 Pat Name: Huseyin Saunders Department: 102 Room: 2N10 Gender: M Paleobotanist: Sandra : 1965 Requested By: Leno Paris Order Number: [id number] Reading MD: Pam Saha Measurements Intervals [place] Rate: 83 P: 62 NH: 201 QRS: 73 QRSD: 94 T: 82 QT: 394 QTc: 434 Interpretive Statements SINUS RHYTHM WITH OCCASIONAL ECTOPIC PREMATURE COMPLEXES Electronically Signed On 12-27-2016 12:34:07 EDT by Pam Saha
--- NOTE | 2016-12-27 12:37 | Electrocardiograph Report ---
[address] [address] Test Date: 2016-12-25 Pat Name: Huseyin Saunders Department: 102 Room: 10 Gender: M Water Resource Engineer: Sandra : 1965 Requested By: Theo Dempsey Order Number: [id number] Reading MD: Pam Saha Measurements Intervals [place] Rate: 85 P: 45 MT: 196 QRS: 68 QRSD: 90 T: 75 QT: 391 QTc: 433 Interpretive Statements SINUS RHYTHM Electronically Signed On 12-27-2016 12:36:34 EDT by Pam Saah
--- NOTE | 2016-12-27 12:38 | Electrocardiograph Report ---
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
--- NOTE | 2016-12-27 15:39 | Arterial Study Report ---
LE Arterial Physiologic Study Patient Name:Huseyin Saunders Order Number:[id number] Procedure Date:12/27/2016 Date:1965Age:51 yrs Gender:Male Lt BP:153 / mmHg Rt.BP:156 / mmHgHeart Rate: Location:[facility] Room #: 2N10 Structures Engineer:Adelfo Tolliver MANUEL Referring MD:Bhavin Forrest MD raise driller:None Reading MD:Bhavin Forrest MD Primary Indications:PAD Risk Factors Yes/No Hypertension Yes Diabetes Yes Hypercholesterolemia Yes Smoking Current Yes Anticoagulants Yes Hx of CAD/PTCA Yes Previous Vascular Surgery Yes Impressions: The right ROSS and waveforms are consistent with moderate disease. Right ROSS 0.62. The left ROSS and waveforms are consistent with moderate disease. Left ROSS 0.59. Recommendations: Risk factor reduction. Further evaluation recommended. After imaging the patient returned to their room. Findings LE Arterial Physiologic Exam: Segmental Pressures: Right: The right posterior tibial pressure is 84 mmHg with an index of 0.54. The right dorsalis pedis pressure is 97 mmHg with an index of 0.62. Left: The left posterior tibial pressure is 89 mmHg with an index of 0.57. The left dorsalis pedis pressure is 92 mmHg with an index of 0.59. PVR: Right: The PVR waveforms are moderately diminished in the right ankle. Left: The PVR waveforms are moderately diminished in the left ankle. Prior Study: No prior study available for comparison. Segmental Pressures Side Location Pressure Index Result Right Posterior Tibial 84 0.54 Moderately Diminished Right Dorsalis Pedis 97 0.62 Moderately Diminished Left Posterior Tibial 89 0.57 Moderately Diminished Left Dorsalis Pedis 92 0.59 Moderately Diminished Ankle Brachial Index Right Systolic Diastolic ROSS Brachial 156 0.62 Dorsalis Pedis 97 0.62 Posterior Tibial 84 0.54 Left Systolic Diastolic ROSS Brachial 153 0.59 Dorsalis Pedis 92 0.59 Posterior Tibial 89 0.57 Updated by Bhavin Forrest MD on 12/27/2016 3:32:19 PM with Status of Final electronically signed on 12/27/2016 3:32:40 PM with status of Final
--- NOTE | 2016-12-27 15:56 | Electrocardiograph Report ---
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
== END 2016-12-27 15:30 | disposition home or self-care (01) | DRG 174 ==
LOC: 2NNU 08:03 → EMEROO 08:03 → 2NNU 11:37 → SUATTDRO 14:14
PROVIDERS: ADMIT Internal Medicine; ATTEND Internal Medicine

== ENCOUNTER 2017-03-06 07:12 | Inpatient (IN) ==
--- NOTE | 2017-03-05 19:04 | Anesthesia Evaluation PreOp ---
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: Denies Any Significant HX Other Medical History: Diabetes Type II Anesthesia History: No Prior Anesthetic Complications, Past Anesthesia Alcohol Use: occasionally Drug use: marijuana Medications and Allergies Aspirin [Lo-Dose Aspirin EC] 81 mg PO DAILY #30 tab 12/27/16 [Rx] Lisinopril [Zestril] 40 mg PO DAILY #60 tablet 12/27/16 [Rx] Metoprolol [Lopressor] 25 mg PO BID #60 tab 12/27/16 [Rx] Nitroglycerin [Nitrostat] 0.4 mg SL PRN PRN #20 tab 12/27/16 [Rx] Quetiapine Fumarate [Seroquel] 100 mg PO HS #30 tab 12/27/16 [Rx] Ticagrelor [Brilinta] 90 mg PO BID #60 tab 12/27/16 [Rx] glipiZIDE [Glucotrol] 5 mg PO BID #60 tablet 12/27/16 [Rx] metFORMIN [Glucophage] 1,000 mg PO BIDWM #120 tab 12/27/16 [Rx] Albuterol Sulfate [Ventolin Hfa] 2 puff IH Q6H PRN 03/06/17 [History] 3 Allergy/AdvReac Type Severity Reaction Status Date / Time Sulfadiazine Allergy Hives Verified 03/06/17 08:13 - Meds/Allergy Pre-op Review Medications Reviewed: Yes Allergies Reviewed: Yes Beta Blockers on Current Med List: Yes Anesthesia Results - Labs Laboratory Tests 02/28/17 02/28/17 02/28/17 11:56 11:56 11:56 Hgb 16.7 Hct 50.1 Plt Count 231 PT 10.1 INR 0.9 APTT 31.3 Sodium 138 Potassium 4.8 H BUN 13 Creatinine 0.88 - Imaging EKG: report reviewed (nsr) Additional studies: cath 12/26/16: Impressions: There is severe one vessel coronary artery disease. There is mild LV Dysfunction EF 40% Patient had successful PTCA/Drug-Eluting Stent placement in the proximal LAD. There is a previous stent in Proximal LAD with severe in-stent stenosis that was intervened on. There is mild one vessel coronary artery disease. carotid studies: Impressions: The bilateral carotid arteries are normal throughout. CTA: CT/CT angio aorta w con runoff IMPRESSION: Occlusion of the right external iliac artery with reconstitution at the level of the right common femoral artery. Short-segment high-grade stenosis involving the left external iliac artery (greater than 70%). Short-segment high-grade stenosis involving the proximal right common iliac artery (greater than 50%). Multifocal atherosclerotic disease involving both SFA without significant flow limiting stenosis. Two-vessel runoff on the right with proximal occlusion of the peroneal artery. Two-vessel runoff on the left with proximal occlusion of the posterior tibial artery. Anesthesia Exam Selected Entries 03/06/17 07:45 Temperature 97.5 F L Pulse Rate 86 Respiratory Rate 18 Blood Pressure 119/85 O2 Sat by Pulse Oximetry 99 Weight: 63kg NPO (# of Hours): 8 - HEENT Pupil (Motor): EOMI Mallampati: II Teeth: Edentulous Oral Opening: Greater than 3 - HARDWARE SALES ASSISTANT LOC: Oriented HARDWARE SALES ASSISTANT Motor: Normal RUE, Normal LUE, Normal RLE, Normal LLE, Normal Face HARDWARE SALES ASSISTANT Sensory: Normal: RUE, LUE, RLE, LLE, Face - Cardiac Rhythm: Regular Murmur: None - Pulmonary Breath Sounds: bilateral Clear Respiratory Effort: Symmetrical Anesthesia Assess/Plan ASA Score: 3 Modified Emmy Scale for Level of Consciousness: Cooperative, oriented, and tranquil Anesthetic Plan: General Monitoring Plan: Standard Monitors, A-Line Recovery Plan: PACU (discussed risks of GA, agrees to proceed)
[2017-03-06] MEDS ORDERED: Lidocaine -MPF 0.5% 50 ML VIAL ONE (07:19)
[2017-03-06] MEDS ORDERED: CeFAZolin Syr 2,000MG/20 ML 2,000 MG/20 ML SYRINGE IVPB ONE (07:38)
[2017-03-06] MEDS ORDERED: Albuterol 2.5 MG/3 ML NEBULIZER IH ONE ×2 (07:38→10:30)
[2017-03-06] MEDS ORDERED: Dexamethasone 4 MG/ML VIAL ONE (07:52)
[2017-03-06] MEDS ORDERED: *HR* Phenylephrine 10 MG/ML VIAL ONE (07:52)
[2017-03-06] MEDS ORDERED: Lidocaine -MPF 2% 2 ML VIAL ONE (07:52)
[2017-03-06] MEDS ORDERED: *HR* Rocuronium Bromide 50 MG/5 ML VIAL ONE (07:52)
[2017-03-06] MEDS ORDERED: *HR* Succinylcholine 200 MG/10 ML VIAL IVP ONE (07:52)
[2017-03-06] MEDS ORDERED: Lidocaine -MPF 4% 5 ML AMPUL ONE (07:52)
[2017-03-06] MEDS ORDERED: *HR* FentaNYL (PF) 100 MCG/2 ML VIAL ONE (07:52)
[2017-03-06] MEDS ORDERED: Ketamine *HR* 500 MG/10 ML MDV ONE (07:52)
[2017-03-06] MEDS ORDERED: Ondansetron 4 MG/2 ML VIAL ONE (07:52)
[2017-03-06] MEDS ORDERED: *HR* Propofol 200 MG/20 ML VIAL IVP ONE (07:52)
[2017-03-06] MEDS ORDERED: *HR* Midazolam HCl 2 MG/2 ML VIAL ONE (07:52)
[2017-03-06] MEDS: Ringers Solution, Lactated 1,000 ML IVC SCH ×2 (08:00→12:25)
[2017-03-06] MEDS ORDERED: Vancomycin 1,000 MG in D5% in Water 250 ML IVPB ONE ×2 (08:00→14:36)
[2017-03-06] MEDS ORDERED: Heparin 1,000 UNITS/500 mL NS 1,500 ML ONE (08:19)
[2017-03-06] MEDS ORDERED: Acetaminophen IV 0 MG/0 ML INFUS..BTL ONE (08:45)
--- NOTE | 2017-03-06 08:47 | History & Physical Report ---
Date of Encounter: 03/06/17 Time of Encounter: 08:40 24 Hour HP Update - Instructions Instructions: If the History and Physical is less than 30 days old and was completed prior to A.M. admission and or procedure and has NOT been updated on calendar day of procedure please complete this update prior to performing procedure. - Update Patient reports changes in Medical Condition: No Changes in examination, assessment, or condition: No Changes in Medication: No Preop tests/diagnostics Reviewed: Yes Surgery Remains Indicated: Yes Consent for Planned Operative Procedure(s) Verified: Yes - Pre-Operative Checklist Preoperative Checklist Indicated: Yes Prophylactic Antibiotic Ordered: Yes (VANCOMCIN DUE TO RISK OF MRSA) Home Medications Include Beta Shawn: Yes Beta Shawn Taken Today (Day of Surgery): Yes Beta Shawn Taken Yesterday (Day Prior to Surgery): Yes Is VTE Prophylaxis Indicated?: Yes
[2017-03-06] MEDS ORDERED: Heparin 1,000 UNITS/500 mL NS 0 ML ONE (09:13)
[2017-03-06] MEDS ORDERED: *HR* Heparin 5,000 UNIT/ML VIAL ONE (10:04)
[2017-03-06] MEDS ORDERED: *HR* Magnesium Sulfate 1 GM/2 ML VIAL ONE (10:27)
[2017-03-06] MEDS ORDERED: *HR* Promethazine 25 MG/ML VIAL IVP PRN (10:30)
[2017-03-06] MEDS ORDERED: Ketorolac 30 MG/ML VIAL ONE (11:08)
--- NOTE | 2017-03-06 11:22 | Operative Note ---
Date of procedure: 03/06/17 Pre-op diagnosis: Peripheral vascular disease with disabling claudication Post-op diagnosis: same Procedure: 1. Right iliac thrombectomy with 5 algerian sara embolectomy catheter. 2. Right common and deep femoral artery endarterectomy with bovine pericardial patch angioplasty. Complications: None Anesthesia: BLAYNEA Surgeon: Bhavin Forrest Estimated blood loss (cc): 50 Specimen: right lower extremity thrombus and plaque Disposition: PACU Procedure in Detail: Indications: The patient is a 52 year old male with a history of diabetes, coronary artery disease, hypertension, hyperlipidemia and tobacco abuse. He presented to vascular clinic with severe right lower extremity claudication. Angiography revealed a right iliac artery occlusion. Revascularization was recommended to alleviate his symptoms. Procedure: The patient was identified in the preoperative area. The risks, benefits and alternatives were discussed and all questions were answered. The patient was taken to the operating room and placed in the supine position on the operating room table. After the induction of general endotracheal anesthesia, the patient was cleaned and draped in the normal sterile fashion. An oblique incision was made over the right femoral vessels sharply. Hemostasis was obtained with electrocautery. Through a process of blunt, sharp and electrocautery dissection, the distal external iliac, deep and superficial femoral arteries were dissected and surrounded with vessel loops. The patient received a bolus of heparin and the vessels were occluded with the vessel loops. A firm plaque was noted in the femoral arteries. Therefore a longitudinal arteriotomy was in the common femoral artery. No flow was noted on release of the proximal vessel loop. A 5 algerian sara catheter was passed into the aorta and inflated. It was withdrawn and significant acute thrombus and chronic embolic material was retrieved. This was sent to pathology. Brisk pulsatile flow was noted at this time. Additional passes of the catheter resulted in no additional thrombus or embolus proximally. Retrograde flow was noted from the right superficial femroal and deep femoral arteries. The common femoral plaque was noted to result in significant stenosis which extended into the deep femoral artery. A common and deep femoral artery endarterectomy were then performed with a dental freer. Proximal and distal endpoints were inspected and no elevated flaps were noted. The vessels were flushed with heparin. A bovine pericardial patch was cut to fit the arteriotomy and was sutured in place with a running 6-0 Prolene suture. Prior to completing the patch, the vessels were flushed and infused with heparinized saline. The patch was completed and flow was restored. A polyphasic signal was identified in the superficial femoral and deep femoral arteries. The wound was irrigated with antibiotic containing saline. Hemostasis was obtained with electrocautery. Platelet rich and platelet poor plasma were infused into the wound. The wound was reapproximated with 2-0 and 3-0 vicryl. Skin was reapproximated with 3-0 Monocryl. Sterile dressings were applied. The patient was extubated and taken to the recover room in stable condition.
[2017-03-06] MEDS: *HR* HYDROmorphone (PF) 1 MG/ML SYRINGE IVP PRN ×4 (11:34→11:49)
[2017-03-06] MEDS: *HR* Meperidine 25 MG/ML SYRINGE IVP PRN ×2 (11:37→11:52)
--- NOTE | 2017-03-06 12:31 | Anesthesia Evaluation Post Op ---
Date of Encounter: 03/06/17 Time of Encounter: 12:25 - Vital Signs Vital Signs: Selected Entries 03/06/17 12:26 Temperature 98.0 F Pulse Rate 67 Respiratory Rate 13 Blood Pressure 158/90 O2 Sat by Pulse Oximetry 98 - Lungs Lungs: Clear Ascult./Percussion - Airway Airway: Non-obstructed - Cardiovascular Regular Rate - Mental Status Mental Status: Alert & Oriented, Answers Appropriately - Pain Pain Scale: 0 Pain Scale used: Numeric (1 - 10) - Nausea Vomiting Nausea Vomiting: Not Present - Hydration Hydration: Ice chips, Pascal catheter - Discharge PostOp Status: Transfer Patient to floor
[2017-03-06] MEDS ORDERED: D5% in Water 1,000 ML IVC PRN (14:36)
[2017-03-06] MEDS ORDERED: *HR* Labetalol 20 MG/4 ML SYRINGE IVP PRN (14:36)
[2017-03-06] MEDS ORDERED: Acetaminophen 325 MG TABLET PO PRN (14:36)
[2017-03-06] MEDS ORDERED: Ondansetron 4 MG/2 ML VIAL IVP PRN (14:36)
[2017-03-06] MEDS ORDERED: Dextrose Gel 15 GM PO PRN ×2 (14:36)
[2017-03-06] MEDS ORDERED: Naloxone 0.4 MG/ML INJ IVP PRN (14:36)
[2017-03-06] MEDS ORDERED: Nitroglycerin 0.4 MG TAB.SUBL SL PRN (14:36)
[2017-03-06] MEDS ORDERED: *HR* OxyCODONE Immed Rel 5 MG TABLET PO PRN (14:36)
[2017-03-06] MEDS ORDERED: *HR* Dextrose 50 % in Water (Syg) 50 ML SYRINGE IVP PRN (14:36)
--- NOTE | 2017-03-06 14:47 | Anesthesia Procedures ---
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 No issues
[2017-03-06] MEDS: *HR* Morphine 2 MG/ML SYRINGE IVP PRN ×2 (14:55→17:51)
[2017-03-06] MEDS: CeFAZolin Premix DUPLEX 2,000 MG/50 ML BAG IVPB SCH (15:26)
[2017-03-06] MEDS: *HR* Metoprolol 5 MG/5 ML VIAL IVP SCH ×2 (17:48→23:35)
[2017-03-06] MEDS: Insulin LISPRO 300 UNITS/3 ML VIAL SQ SCH (17:49)
[2017-03-06] MEDS ORDERED: *HR* Heparin 5,000 UNIT/ML VIAL SQ SCH ×2 (18:00)
[2017-03-06] MEDS ORDERED: Insulin LISPRO 300 UNITS/3 ML VIAL SQ SCH (21:00)
[2017-03-06] MEDS: *HR* Ticagrelor 90 MG TABLET PO SCH (21:10)
[2017-03-06] MEDS: *HR* HYDROcodone/Acet 5/325 mg TABLET PO PRN (21:19)
[2017-03-07] MEDS: CeFAZolin Premix DUPLEX 2,000 MG/50 ML BAG IVPB SCH (01:21)
[2017-03-07] MEDS: *HR* HYDROcodone/Acet 5/325 mg TABLET PO PRN (04:46)
[2017-03-07] MEDS: *HR* Metoprolol 5 MG/5 ML VIAL IVP SCH (06:10)
[2017-03-07 06:45] LABS: Basophils % 0.1 %; Immature Granulocytes % 0.4 % (0-4); Lymphocytes # 2.5 K/mcL (0.6-4.6); Lymphocytes % 18.8 %; Mean Corpuscular HGB Conc 33.4 g/dL (31.6-35.5); Mean Corpuscular Hemoglobin 26.8 pg (28.0-33.3); Mean Corpuscular Volume 80.2 fL (83.0-100.0); Mean Platelet Volume 11.4 fL (9.4-12.4); Monocytes # 1.4 K/mcL (0.0-1.3); Monocytes % 10.1 %; Neutrophils # 9.4 K/mcL (1.6-8.9); Platelet Count 243 K/mcL (140-400); Red Blood Count 5.11 M/mcL (4.19-5.50); Red Cell Distribution Width 14.2 % (11.5-14.5); Segmented Neutrophils % 70.6 %
[2017-03-07 06:46] LABS: Hemoglobin 13.7 g/dL (12.9-16.9)
[2017-03-07 06:58] LABS: BUN/Creatinine Ratio 13 (6-26); Blood Urea Nitrogen 10 mg/dL (8-26); Calcium 9.2 mg/dL (8.6-10.8); Carbon Dioxide 24 mEq/L (19-29); Chloride 104 mEq/L (98-109); Glucose 180 mg/dL (70-99); Osmolality,Calculated 288 (280-300); Potassium 4.4 mEq/L (3.5-4.5); Sodium 137 mEq/L (136-145); eGFR For African Americans > 60 (> 60); eGFR For Non-African Americans > 60 (> 60)
--- NOTE | 2017-03-07 07:08 | Discharge Summary ---
Date of Encounter: 03/07/17 Time of Encounter: 08:10 - Discharge Diagnosis (1) Atherosclerosis of [place] arteries of extremities with intermittent claudication, bilateral legs Priority: Primary Status: Chronic Comments: The patient is postoperative day #1 after right iliac thrombectomy and right femoral endarterctomy. He he is healing well. He has no hematoma. His foot is warm and his compartments are soft. He has polyphasic right pedal signals. He will be discharged today. (2) Essential hypertension Priority: Secondary Status: Chronic Comments: He was counseled regarding atherosclerotic risk factor reduction. (3) Hyperlipidemia Priority: Secondary Status: Chronic Qualifiers: Hyperlipidemia type: mixed hyperlipidemia Qualified Code(s): E78.2 - Mixed hyperlipidemia (4) Tobacco abuse Priority: Secondary Status: Chronic (5) Type 2 diabetes mellitus Priority: Secondary Status: Chronic Qualifiers: Diabetes mellitus complication status: with circulatory complication Diabetes mellitus complication detail: with peripheral angiopathy without gangrene Diabetes mellitus halfway insulin use: without halfway use Qualified Code(s): E11.51 - Type 2 diabetes mellitus with diabetic peripheral angiopathy without gangrene (6) CAD (coronary artery disease) Priority: Secondary Status: Chronic Qualifiers: Coronary Disease-Associated Artery/Lesion type: [place] artery [place] vs. transplanted heart: [place] heart Associated angina: without angina Qualified Code(s): I25.10 - Atherosclerotic heart disease of [place] coronary artery without angina pectoris - Discharge Medications Prescriptions: OxyCODONE/APAP 5/325 [Percocet 5/325 MG] 1 each PO Q6HR PRN #20 tablet PRN Reason: postoperative pain Home Medications: Aspirin [Lo-Dose Aspirin EC] 81 mg PO DAILY #30 tab 12/27/16 [Rx] Lisinopril [Zestril] 40 mg PO DAILY #60 tablet 12/27/16 [Rx] Metoprolol [Lopressor] 25 mg PO BID #60 tab 12/27/16 [Rx] Nitroglycerin [Nitrostat] 0.4 mg SL PRN PRN #20 tab 12/27/16 [Rx] Quetiapine Fumarate [Seroquel] 100 mg PO HS #30 tab 12/27/16 [Rx] Ticagrelor [Brilinta] 90 mg PO BID #60 tab 12/27/16 [Rx] glipiZIDE [Glucotrol] 5 mg PO BID #60 tablet 12/27/16 [Rx] metFORMIN [Glucophage] 1,000 mg PO BIDWM #120 tab 12/27/16 [Rx] Albuterol Sulfate [Ventolin Hfa] 2 puff IH Q6H PRN 03/06/17 [History] OxyCODONE/APAP 5/325 [Percocet 5/325 MG] 1 each PO Q6HR PRN #20 tablet 03/07/17 [Rx] Allergies/Adverse Reactions: 3 Allergy/AdvReac Type Severity Reaction Status Date / Time Sulfadiazine Allergy Hives Verified 03/06/17 08:13 Date of admission: 03/06/17 12:41 Primary care physician: Lloyd Ramsey DO Procedure(s) Performed: Right iliac thrombectomy and right femoral endarterectomy. Discharging clinician: Bhavin Forrest Anticipated date of discharge: 03/07/17 - Patient Status Disposition: Home, Self-Care Condition: Good Functional capacity at discharge: independent ambulation Overall status at discharge: patient is back to baseline - Discharge Instructions Instructions: Oxycodone/Acetaminophen (By mouth), Diabetes Mellitus Type 2 in Adults (DC), Peripheral Vascular Disorders (DC), Peripheral Vascular Disorders ( GEN) Follow Up With: Bhavin Forrest MD [Partnered Physician] - 04/03/17 1:00 pm Antwan Su [Non-Partnered Physician] - 03/12/17 9:00 am Additional Instructions: May remove bandage and shower 03/08/17. Wash wound gently and pat to dry. Apply dry gauze to wound daily for 7 days. No tub baths or swimming until 03/27/17. Call Dr. Forrest at [phone] with questions or concerns. - Diet and Activity Activity: increase activity as tolerated Diet: advance to your usual diet - Hospital Course Hospital course: Mr. Saunders is a 52 year old male with a history of chronic right lower extremity disabling claudicaion. He was admitted on 03.06.17 and underwent a right iliac thrombectomy and right femoral endarterectomy. He tolerated the procedure well and was discharged to home in stable condition on postoperative day #1 without complications. Time spent discussing smoking cessation with patient: 3 to 10 minutes - Time Spent with Patient Total time spent providing and/or coordinating discharge services: Exam Vital Signs, Last 4 Hours Temp Pulse Resp BP Pulse Ox 03/07/17 03:24 98.6 F 81 16 141/72 99 General: Present: Conversant, No Apparent Distress HEENT: Present: Pupils equal Cardiac: Present: Reg Rate and Rhythm Lungs: Present: Normal Breath Sounds Neuro: Present: Alert and responsive, No focal deficits noted, Motor nerves grossly intact, Sensory nerves grossly intact Abdomen: Present: Soft, Non-tender Vascular: Present: Normal capillary refill, Pulse, normal (pedal signals present bilaterally), Surgical incisions (incision clean, dry and intact without erythema or drainage). Absent: Cyanosis, Edema Skin: Present: No rashes noted on visualized skin - VTE Documentation of Mechanical Device: Intermittent pneumatic compression device
[2017-03-07 07:10] VITALS: BP 159/85
[2017-03-07] MEDS: Insulin LISPRO 300 UNITS/3 ML VIAL SQ SCH (07:45)
[2017-03-07] MEDS: *HR* Ticagrelor 90 MG TABLET PO SCH (07:45)
[2017-03-07] MEDS ORDERED: Lisinopril 20 MG TABLET PO SCH (09:00)
[2017-03-07] MEDS ORDERED: Aspirin Enteric Coated 81 MG Tablet PO SCH (09:00)
[2017-03-07] MEDS ORDERED: *HR* Heparin 5,000 UNIT/ML VIAL SQ SCH (18:00)
== END 2017-03-07 09:50 | disposition home or self-care (01) | DRG 169 ==
LOC: SAMDAY 07:12 → 2NNU 12:41
PROVIDERS: ADMIT Surgery; ATTEND Surgery

== ENCOUNTER 2020-05-14 13:08 | Inpatient (IN) ==
[2020-05-14] MEDS ORDERED: 0.9 % Sodium Chloride 1,000 ML ONE (13:12)
[2020-05-14] MEDS ORDERED: *HR* Midazolam HCl 2 MG/2 ML VIAL ONE (13:22)
[2020-05-14] MEDS ORDERED: *HR* FentaNYL (PF) 100 MCG/2 ML VIAL ONE (13:23)
[2020-05-14] MEDS ORDERED: Furosemide 40 MG/4 ML VIAL ONE (16:34)
[2020-05-14] MEDS ORDERED: *HR* LORazepam 1 MG TABLET PO ONE (16:36)
[2020-05-14] MEDS ORDERED: Nitroglycerin 0.4 MG TAB.SUBL SL PRN (18:59)
[2020-05-14] MEDS: *HR* OxyCODONE/APAP 5/325 TABLET PO PRN (20:23)
[2020-05-14] MEDS ORDERED: Insulin DETEMIR 100 UNIT/ML X5UNITS SUBQ SCH (21:00)
[2020-05-14] MEDS ORDERED: QUEtiapine Fumarate 100 MG TABLET PO PRN (21:00)
[2020-05-14] MEDS ORDERED: Patient Taking Own Medication 1 EACH PO SCH (21:00)
[2020-05-14] MEDS ORDERED: Insulin LISPRO 300 UNITS/3 ML VIAL SUBQ SCH (22:00)
[2020-05-14] MEDS: Gabapentin 400 MG CAPSULE PO SCH (22:09)
[2020-05-14] MEDS: *HR* Ticagrelor 90 MG TABLET PO SCH (22:09)
[2020-05-14] MEDS: Cefepime HCl 1,000 MG in Water for inj. (sterile) 10 ML IVP SCH (23:25)
[2020-05-14] MEDS: Nicotine 21 MG PATCH.TD24 TD SCH (23:25)
[2020-05-14] MEDS: Neosporin OINT 15 GM TUBE TP SCH (23:26)
[2020-05-15] MEDS: *HR* OxyCODONE/APAP 5/325 TABLET PO PRN ×5 (00:19→18:57)
[2020-05-15] MEDS ORDERED: Doxycycline 100 MG in 0.9 % Sodium Chloride Mini Bag 100 ML IVPB SCH (06:00)
[2020-05-15 06:13] LABS: Basophils # 0.1 K/mcL (0.0-0.2); Basophils % 0.4 %; Eosinophils # 0.1 K/mcL (0.0-0.6); Eosinophils % 0.5 %; Hematocrit 42.7 % (37.5-50.1); Hemoglobin 13.9 g/dL (12.9-16.9); Immature Granulocytes % 0.5 % (0-4); Lymphocytes # 2.5 K/mcL (0.6-4.6); Lymphocytes % 14.1 %; Mean Corpuscular HGB Conc 32.6 g/dL (31.6-35.5); Mean Corpuscular Hemoglobin 26.7 pg (28.0-33.3); Mean Corpuscular Volume 82.1 fL (83.0-100.0); Mean Platelet Volume 11.4 fL (9.4-12.4); Monocytes # 1.6 K/mcL (0.0-1.3); Monocytes % 9.2 %; Neutrophils # 13.1 K/mcL (1.6-8.9); Platelet Count 227 K/mcL (140-400); Red Cell Distribution Width 13.9 % (11.5-14.5); Segmented Neutrophils % 75.3 %; White Blood Count 17.4 K/mcL (4.3-11.1)
[2020-05-15] MEDS ORDERED: Perflutren Lipid Microsphere 1.3 ML in 0.9 % Sodium Chloride 8.7 ML IVP PRN (06:32)
[2020-05-15 06:39] LABS: INR 1.1; Prothrombin Time 12.9 Seconds (9.4-12.1)
[2020-05-15 07:10] LABS: Alanine Aminotransferase 54 Units/L (7-52); Albumin/Globulin Ratio 1.1 (1.1-2.2); Alkaline Phosphatase 93 Units/L (34-104); Aspartate Amino Transferase 68 Units/L (13-39); BUN/Creatinine Ratio 16 (6-26); Bilirubin,Total 1.5 mg/dL (0.3-1.0); Blood Urea Nitrogen 18 mg/dL (6-20); Calcium 9.6 mg/dL (8.6-10.3); Carbon Dioxide 25 mEq/L (23-29); Chloride 95 mEq/L (98-107); Globulin 3.5 g/dL (2.4-3.5); Glucose 288 mg/dL (70-105); Magnesium 1.5 mg/dL (1.6-2.6); Osmolality,Calculated 288 (280-300); Potassium 3.5 mEq/L (3.5-5.1); Sodium 133 mEq/L (136-145); Total Protein 7.5 g/dL (6.4-8.9); eGFR For African Americans > 60 (> 60); eGFR For Non-African Americans > 60 (> 60)
[2020-05-15] MEDS ORDERED: GlipiZIDE 5 MG TABLET PO SCH (07:30)
[2020-05-15] MEDS: *HR* Ticagrelor 90 MG TABLET PO SCH ×2 (08:02→20:59)
[2020-05-15] MEDS: Gabapentin 400 MG CAPSULE PO SCH ×3 (08:03→20:59)
[2020-05-15] MEDS: Nicotine 21 MG PATCH.TD24 TD SCH (08:03)
[2020-05-15] MEDS: Insulin LISPRO 300 UNITS/3 ML VIAL SUBQ SCH ×4 (08:04→21:10)
[2020-05-15] MEDS: Cefepime HCl 1,000 MG in Water for inj. (sterile) 10 ML IVP SCH ×2 (08:05→16:38)
[2020-05-15] MEDS: Neosporin OINT 15 GM TUBE TP SCH ×3 (08:05→16:48)
[2020-05-15] MEDS ORDERED: Aspirin 81 MG TAB.CHEW PO SCH (09:00)
[2020-05-15] MEDS ORDERED: Aspirin Enteric Coated 81 MG Tablet PO SCH (09:00)
[2020-05-15] MEDS ORDERED: lisinopriL 20 MG TABLET PO SCH (09:00)
[2020-05-15] MEDS ORDERED: hydroCHLOROthiazide 25 MG TABLET PO SCH (09:00)
[2020-05-15] MEDS ORDERED: Insulin DETEMIR 100 UNIT/ML X5UNITS SUBQ SCH ×2 (09:00)
[2020-05-15] MEDS ORDERED: Metoprolol XL (24 HR) Succ 50 MG TAB.ER.24H PO SCH (09:00)
[2020-05-15 13:03] LABS: Adenovirus Not Detected (Not Detect); Bordetella Pertussis Not Detected (Not Detect); Chlamydophila pneumoniae Not Detected (Not Detect); Coronavirus 229E Not Detected (Not Detect); Coronavirus HKU1 Not Detected (Not Detect); Coronavirus NL63 Not Detected (Not Detect); Coronavirus OC43 Not Detected (Not Detect); Human Metapneumovirus Not Detected (Not Detect); Human Rhinovirus/Enterovirus Not Detected (Not Detect); Influenza A Subtype 2009 H1 Not Detected (Not Detect); Influenza B Not Detected (Not Detect); Mycoplasma pneumoniae Not Detected (Not Detect); Parainfluenza Virus 1 Not Detected (Not Detect); Parainfluenza Virus 2 Not Detected (Not Detect); Parainfluenza Virus 3 Not Detected (Not Detect); Parainfluenza Virus 4 Not Detected (Not Detect); Respiratory Syncytial Virus Not Detected (Not Detect); SARS-CoV-2 Not Detected (Not Detect)
[2020-05-15] MEDS ORDERED: QUEtiapine Fumarate 100 MG TABLET PO PRN (15:11)
[2020-05-15] MEDS ORDERED: Nitroglycerin 0.4 MG TAB.SUBL SL PRN (15:11)
[2020-05-15] MEDS: *HR* Heparin 5,000 UNIT/ML VIAL SQ SCH (16:46)
[2020-05-15] MEDS ORDERED: *HR* Heparin 5,000 UNIT/ML VIAL SQ SCH (18:00)
[2020-05-15] MEDS: Doxycycline 100 MG CAPSULE PO SCH (20:59)
[2020-05-15] MEDS: Insulin DETEMIR 100 UNIT/ML X5UNITS SUBQ SCH (21:28)
[2020-05-16] MEDS: *HR* OxyCODONE/APAP 5/325 TABLET PO PRN ×3 (00:35→16:49)
[2020-05-16] MEDS: Cefepime HCl 1,000 MG in Water for inj. (sterile) 10 ML IVP SCH ×3 (00:35→16:49)
[2020-05-16] MEDS: Neosporin OINT 15 GM TUBE TP SCH ×3 (00:37→16:52)
[2020-05-16 01:11] LABS: Basophils # 0.1 K/mcL (0.0-0.2); Basophils % 0.7 %; Eosinophils # 0.2 K/mcL (0.0-0.6); Eosinophils % 1.3 %; Hematocrit 44.6 % (37.5-50.1); Hemoglobin 14.7 g/dL (12.9-16.9); Immature Granulocytes % 0.3 % (0-4); Lymphocytes # 2.5 K/mcL (0.6-4.6); Lymphocytes % 22.7 %; Mean Corpuscular Hemoglobin 27.6 pg (28.0-33.3); Mean Corpuscular Volume 83.7 fL (83.0-100.0); Mean Platelet Volume 11.6 fL (9.4-12.4); Monocytes % 8.6 %; Neutrophils # 7.4 K/mcL (1.6-8.9); Platelet Count 209 K/mcL (140-400); Red Blood Count 5.33 M/mcL (4.19-5.50); Red Cell Distribution Width 13.8 % (11.5-14.5); Segmented Neutrophils % 66.4 %; White Blood Count 11.1 K/mcL (4.3-11.1)
[2020-05-16 01:31] LABS: BUN/Creatinine Ratio 18 (6-26); Blood Urea Nitrogen 22 mg/dL (6-20); Calcium 8.8 mg/dL (8.6-10.3); Carbon Dioxide 24 mEq/L (23-29); Chloride 97 mEq/L (98-107); Glucose 231 mg/dL (70-105); Osmolality,Calculated 285 (280-300); Potassium 3.8 mEq/L (3.5-5.1); Sodium 132 mEq/L (136-145); eGFR For African Americans > 60 (> 60); eGFR For Non-African Americans > 60 (> 60)
[2020-05-16] MEDS: *HR* Heparin 5,000 UNIT/ML VIAL SQ SCH ×2 (06:27→16:49)
[2020-05-16] MEDS ORDERED: hydroCHLOROthiazide 25 MG TABLET PO SCH (09:00)
[2020-05-16] MEDS: Metoprolol XL (24 HR) Succ 50 MG TAB.ER.24H PO SCH (09:02)
[2020-05-16] MEDS: *HR* Ticagrelor 90 MG TABLET PO SCH ×2 (09:02→22:13)
[2020-05-16] MEDS: Doxycycline 100 MG CAPSULE PO SCH (09:02)
[2020-05-16] MEDS: Gabapentin 400 MG CAPSULE PO SCH ×3 (09:02→22:13)
[2020-05-16] MEDS: Aspirin 81 MG TAB.CHEW PO SCH (09:02)
[2020-05-16] MEDS: Nicotine 21 MG PATCH.TD24 TD SCH (09:03)
[2020-05-16] MEDS: lisinopriL 20 MG TABLET PO SCH (09:03)
[2020-05-16] MEDS: Insulin LISPRO 300 UNITS/3 ML VIAL SUBQ SCH ×3 (09:04→16:52)
[2020-05-16] MEDS: Insulin DETEMIR 100 UNIT/ML X5UNITS SUBQ SCH (09:04)
[2020-05-16 11:22] LABS: Magnesium 1.6 mg/dL (1.6-2.6); Phosphorous 2.1 mg/dL (2.7-4.5)
[2020-05-16 11:36] LABS: Thyroid Stimulating Hormone 2.137 mcIU/mL (0.340-5.600)
[2020-05-16] MEDS: Spironolactone 12.5 MG TABLET PO SCH (12:43)
[2020-05-16] MEDS: Morphine Sulfate 2 MG/ML SYRINGE IVP PRN ×2 (12:43→22:36)
[2020-05-16] MEDS ORDERED: Insulin DETEMIR 100 UNIT/ML X5UNITS SUBQ SCH (21:00)
[2020-05-16] MEDS ORDERED: Insulin LISPRO 300 UNITS/3 ML VIAL SUBQ SCH (21:00)
[2020-05-17 00:46] LABS: Basophils # 0.1 K/mcL (0.0-0.2); Basophils % 0.7 %; Eosinophils # 0.3 K/mcL (0.0-0.6); Eosinophils % 2.4 %; Hematocrit 38.1 % (37.5-50.1); Immature Granulocytes % 0.5 % (0-4); Lymphocytes % 16.8 %; Mean Corpuscular HGB Conc 32.5 g/dL (31.6-35.5); Mean Corpuscular Hemoglobin 26.8 pg (28.0-33.3); Mean Corpuscular Volume 82.5 fL (83.0-100.0); Mean Platelet Volume 11.6 fL (9.4-12.4); Monocytes # 1.2 K/mcL (0.0-1.3); Monocytes % 10.2 %; Neutrophils # 8.2 K/mcL (1.6-8.9); Platelet Count 237 K/mcL (140-400); Red Blood Count 4.62 M/mcL (4.19-5.50); Red Cell Distribution Width 13.7 % (11.5-14.5); Segmented Neutrophils % 69.4 %; White Blood Count 11.9 K/mcL (4.3-11.1)
[2020-05-17] MEDS: Neosporin OINT 15 GM TUBE TP SCH ×2 (00:47→09:09)
[2020-05-17 00:48] LABS: Hemoglobin 12.4 g/dL (12.9-16.9)
[2020-05-17] MEDS: *HR* OxyCODONE/APAP 5/325 TABLET PO PRN ×3 (00:53→11:00)
[2020-05-17 01:06] LABS: BUN/Creatinine Ratio 20 (6-26); Blood Urea Nitrogen 28 mg/dL (6-20); Calcium 8.7 mg/dL (8.6-10.3); Carbon Dioxide 26 mEq/L (23-29); Chloride 96 mEq/L (98-107); Glucose 306 mg/dL (70-105); Osmolality,Calculated 289 (280-300); Potassium 4.1 mEq/L (3.5-5.1); Sodium 131 mEq/L (136-145); eGFR For African Americans > 60 (> 60); eGFR For Non-African Americans 52 (> 60)
[2020-05-17] MEDS: *HR* Heparin 5,000 UNIT/ML VIAL SQ SCH (06:02)
[2020-05-17 07:57] LABS: Estimated Average Glucose 263 mg/dl; Hemoglobin A1C 10.8 %
[2020-05-17] MEDS ORDERED: Insulin DETEMIR 100 UNIT/ML X5UNITS SUBQ SCH (09:00)
[2020-05-17] MEDS: Insulin LISPRO 300 UNITS/3 ML VIAL SUBQ SCH ×4 (09:04→11:47)
[2020-05-17] MEDS: lisinopriL 20 MG TABLET PO SCH (09:05)
[2020-05-17] MEDS: Gabapentin 400 MG CAPSULE PO SCH (09:05)
[2020-05-17] MEDS: Metoprolol XL (24 HR) Succ 50 MG TAB.ER.24H PO SCH (09:06)
[2020-05-17] MEDS: Aspirin 81 MG TAB.CHEW PO SCH (09:07)
[2020-05-17] MEDS: *HR* Ticagrelor 90 MG TABLET PO SCH (09:07)
[2020-05-17] MEDS: Nicotine 21 MG PATCH.TD24 TD SCH (09:07)
[2020-05-17] MEDS: Spironolactone 12.5 MG TABLET PO SCH (09:09)
[2020-05-17] MEDS: Morphine Sulfate 2 MG/ML SYRINGE IVP PRN (09:13)
[2020-05-17 11:11] VITALS: BP 136/97
== END 2020-05-17 14:04 | disposition home or self-care (01) | DRG 175 ==
LOC: ICNU 18:04 → 2NNU 05-15 17:54
PROVIDERS: ADMIT Internal Medicine Cardiovascular Disease; ATTEND Internal Medicine Cardiovascular Disease

== ENCOUNTER 2020-09-18 09:27 | Inpatient (IN) ==
[2020-09-18] MEDS ORDERED: Ondansetron 4 MG/2 ML VIAL IVP PRN (11:16)
[2020-09-18] MEDS ORDERED: Naloxone 0.4 MG/ML INJ IVP PRN (11:16)
[2020-09-18] MEDS ORDERED: D5% in Water 1,000 ML IVC PRN (11:18)
[2020-09-18] MEDS ORDERED: *HR* Dextrose 50 % in Water (Vial) 50 ML VIAL IVP PRN (11:18)
[2020-09-18] MEDS ORDERED: Dextrose Gel 15 GM/37.5 ML TUBE PO PRN ×2 (11:18)
[2020-09-18] MEDS ORDERED: Perflutren Lipid Microsphere 1.3 ML in 0.9 % Sodium Chloride 8.7 ML IVP PRN (11:25)
[2020-09-18] MEDS ORDERED: Insulin LISPRO 300 UNITS/3 ML VIAL SUBQ SCH ×2 (11:30→21:00)
[2020-09-18] MEDS ORDERED: Insulin LISPRO 300 UNITS/3 ML VIAL SUBQ ONE (11:46)
[2020-09-18] MEDS ORDERED: QUEtiapine Fumarate 100 MG TABLET PO PRN (11:56)
[2020-09-18 12:50] LABS: Adenovirus Not Detected (Not Detect); Bordetella Pertussis Not Detected (Not Detect); Chlamydophila pneumoniae Not Detected (Not Detect); Coronavirus 229E Not Detected (Not Detect); Coronavirus HKU1 Not Detected (Not Detect); Coronavirus NL63 Not Detected (Not Detect); Coronavirus OC43 Not Detected (Not Detect); Human Metapneumovirus Not Detected (Not Detect); Human Rhinovirus/Enterovirus Not Detected (Not Detect); Influenza A Subtype 2009 H1 Not Detected (Not Detect); Influenza B Not Detected (Not Detect); Mycoplasma pneumoniae Not Detected (Not Detect); Parainfluenza Virus 1 Not Detected (Not Detect); Parainfluenza Virus 2 Not Detected (Not Detect); Parainfluenza Virus 3 Not Detected (Not Detect); Parainfluenza Virus 4 Not Detected (Not Detect); Respiratory Syncytial Virus Not Detected (Not Detect); SARS-CoV-2 Not Detected (Not Detect)
[2020-09-18] MEDS: *HR* Heparin 5,000 UNIT/ML VIAL SQ SCH ×2 (13:07→21:20)
[2020-09-18] MEDS: Insulin DETEMIR 100 UNIT/ML X5UNITS SUBQ SCH ×2 (13:07→21:19)
[2020-09-18] MEDS: Nicotine 14 MG PATCH.TD24 TD SCH (13:07)
[2020-09-18] MEDS: Insulin LISPRO 300 UNITS/3 ML VIAL SUBQ SCH ×2 (16:26→21:24)
[2020-09-18] MEDS: Gabapentin 400 MG CAPSULE PO SCH ×2 (17:22→21:19)
[2020-09-18] MEDS: hydrOXYzine pamoate 25 MG CAPSULE PO PRN (17:24)
[2020-09-18] MEDS: *HR* Ticagrelor 90 MG TABLET PO SCH (21:18)
[2020-09-19 01:02] LABS: Basophils % 0.2 %; Eosinophils % 0.1 %; Hematocrit 38.9 % (37.5-50.1); Hemoglobin 12.8 g/dL (12.9-16.9); Immature Granulocytes % 0.7 % (0-4); Lymphocytes # 1.4 K/mcL (0.6-4.6); Lymphocytes % 10.9 %; Mean Corpuscular HGB Conc 32.9 g/dL (31.6-35.5); Mean Corpuscular Hemoglobin 25.6 pg (28.0-33.3); Mean Corpuscular Volume 77.8 fL (83.0-100.0); Mean Platelet Volume 11.1 fL (9.4-12.4); Monocytes # 0.8 K/mcL (0.0-1.3); Monocytes % 5.8 %; Neutrophils # 10.8 K/mcL (1.6-8.9); Platelet Count 229 K/mcL (140-400); Red Cell Distribution Width 14.9 % (11.5-14.5); Segmented Neutrophils % 82.3 %; White Blood Count 13.1 K/mcL (4.3-11.1)
[2020-09-19 01:17] LABS: Estimated Average Glucose 171 mg/dl; Hemoglobin A1C 7.6 %
[2020-09-19 01:22] LABS: BUN/Creatinine Ratio 36 (6-26); Blood Urea Nitrogen 38 mg/dL (6-20); Calcium 9.1 mg/dL (8.6-10.3); Carbon Dioxide 20 mEq/L (23-29); Chloride 103 mEq/L (98-107); Chol/HDL Ratio 3.7 (0-4.9); Cholesterol 167 mg/dL (< 200); Glucose 195 mg/dL (70-105); HDL Cholesterol 45 mg/dL (40-59); LDL Cholesterol,Calculated 103 mg/dL (< 100); Magnesium 1.7 mg/dL (1.6-2.6); Osmolality,Calculated 290 (280-300); Potassium 4.3 mEq/L (3.5-5.1); Sodium 133 mEq/L (136-145); Triglycerides 93 mg/dL (< 150); eGFR For African Americans > 60 (> 60); eGFR For Non-African Americans > 60 (> 60)
[2020-09-19] MEDS: *HR* Heparin 5,000 UNIT/ML VIAL SQ SCH ×3 (06:01→20:38)
[2020-09-19] MEDS: Aspirin Enteric Coated 81 MG Tablet PO SCH (07:38)
[2020-09-19] MEDS: Insulin LISPRO 300 UNITS/3 ML VIAL SUBQ SCH ×4 (07:38→20:39)
[2020-09-19] MEDS: Nicotine 14 MG PATCH.TD24 TD SCH (07:38)
[2020-09-19] MEDS: *HR* Ticagrelor 90 MG TABLET PO SCH ×2 (07:39→20:38)
[2020-09-19] MEDS: Isosorbide MONOnitrate (24 HR) 30 MG TAB.ER.24H PO SCH (07:39)
[2020-09-19] MEDS: Fluticasone Propionate Nasal 50 MCG/SPRAY BOTTLE NS SCH (07:39)
[2020-09-19] MEDS: Gabapentin 400 MG CAPSULE PO SCH ×4 (07:39→20:38)
[2020-09-19] MEDS: Insulin DETEMIR 100 UNIT/ML X5UNITS SUBQ SCH ×2 (07:41→20:38)
[2020-09-19] MEDS: Metoprolol XL (24 HR) Succ 50 MG TAB.ER.24H PO SCH (11:16)
[2020-09-19] MEDS: Furosemide 20 MG TABLET PO SCH (14:24)
[2020-09-19] MEDS: hydrOXYzine pamoate 25 MG CAPSULE PO PRN (17:51)
[2020-09-20] MEDS: *HR* Heparin 5,000 UNIT/ML VIAL SQ SCH (05:15)
[2020-09-20] MEDS: *HR* Ticagrelor 90 MG TABLET PO SCH ×3 (08:04→20:53)
[2020-09-20] MEDS: Furosemide 20 MG TABLET PO SCH (08:04)
[2020-09-20] MEDS: Isosorbide MONOnitrate (24 HR) 30 MG TAB.ER.24H PO SCH (08:04)
[2020-09-20] MEDS: Gabapentin 400 MG CAPSULE PO SCH ×4 (08:05→20:52)
[2020-09-20] MEDS: Metoprolol XL (24 HR) Succ 50 MG TAB.ER.24H PO SCH (08:05)
[2020-09-20] MEDS: Aspirin Enteric Coated 81 MG Tablet PO SCH (08:05)
[2020-09-20] MEDS: Nicotine 14 MG PATCH.TD24 TD SCH (08:05)
[2020-09-20] MEDS: Fluticasone Propionate Nasal 50 MCG/SPRAY BOTTLE NS SCH (08:06)
[2020-09-20] MEDS: Insulin DETEMIR 100 UNIT/ML X5UNITS SUBQ SCH ×2 (08:06→20:47)
[2020-09-20] MEDS: Insulin LISPRO 300 UNITS/3 ML VIAL SUBQ SCH ×4 (08:07→20:49)
[2020-09-20 08:13] LABS: Basophils # 0.2 K/mcL (0.0-0.2); Basophils % 1.2 %; Eosinophils # 0.7 K/mcL (0.0-0.6); Eosinophils % 5.3 %; Hematocrit 44.4 % (37.5-50.1); Hemoglobin 14.2 g/dL (12.9-16.9); Immature Granulocytes % 0.5 % (0-4); Lymphocytes # 3.7 K/mcL (0.6-4.6); Lymphocytes % 30.3 %; Mean Corpuscular Hemoglobin 25.2 pg (28.0-33.3); Mean Corpuscular Volume 78.9 fL (83.0-100.0); Mean Platelet Volume 10.6 fL (9.4-12.4); Monocytes # 0.9 K/mcL (0.0-1.3); Monocytes % 7.2 %; Neutrophils # 6.8 K/mcL (1.6-8.9); Platelet Count 259 K/mcL (140-400); Red Blood Count 5.63 M/mcL (4.19-5.50); Red Cell Distribution Width 15.1 % (11.5-14.5); Segmented Neutrophils % 55.5 %; White Blood Count 12.3 K/mcL (4.3-11.1)
[2020-09-20 08:37] LABS: BUN/Creatinine Ratio 29 (6-26); Blood Urea Nitrogen 34 mg/dL (6-20); Calcium 9.5 mg/dL (8.6-10.3); Carbon Dioxide 26 mEq/L (23-29); Chloride 104 mEq/L (98-107); Glucose 174 mg/dL (70-105); Osmolality,Calculated 296 (280-300); Potassium 4.5 mEq/L (3.5-5.1); Sodium 137 mEq/L (136-145); eGFR For African Americans > 60 (> 60); eGFR For Non-African Americans > 60 (> 60)
[2020-09-20] MEDS ORDERED: lisinopriL 20 MG TABLET PO SCH (09:00)
[2020-09-20] MEDS ORDERED: *HR* Heparin 5,000 UNIT/ML VIAL IVP PRN ×2 (10:05)
[2020-09-20 10:46] LABS: Heparin anti-factor XA UFH 0.12 IU/mL (0.30-0.70); INR 0.9; Prothrombin Time 10.9 Seconds (9.4-12.1)
[2020-09-20] MEDS ORDERED: Nitroglycerin 0.4 MG TAB.SUBL SL PRN (11:14)
[2020-09-20] MEDS: Heparin 25,000UNIT/250ML 1/2NS 25,000 UNIT/250 ML IV.SOLN IVC SCH (11:16)
[2020-09-20] MEDS: hydrOXYzine pamoate 25 MG CAPSULE PO PRN ×2 (16:19→21:04)
[2020-09-20] MEDS: Melatonin 3 MG TABLET PO PRN (21:04)
[2020-09-21 01:28] LABS: Basophils # 0.1 K/mcL (0.0-0.2); Eosinophils # 0.9 K/mcL (0.0-0.6); Eosinophils % 7.8 %; Hematocrit 42.4 % (37.5-50.1); Hemoglobin 13.8 g/dL (12.9-16.9); Immature Granulocytes % 0.3 % (0-4); Lymphocytes # 3.9 K/mcL (0.6-4.6); Lymphocytes % 32.6 %; Mean Corpuscular HGB Conc 32.5 g/dL (31.6-35.5); Mean Corpuscular Hemoglobin 25.5 pg (28.0-33.3); Mean Corpuscular Volume 78.2 fL (83.0-100.0); Monocytes # 0.9 K/mcL (0.0-1.3); Monocytes % 7.7 %; Platelet Count 251 K/mcL (140-400); Red Blood Count 5.42 M/mcL (4.19-5.50); Segmented Neutrophils % 50.6 %; White Blood Count 11.9 K/mcL (4.3-11.1)
[2020-09-21 01:42] LABS: BUN/Creatinine Ratio 26 (6-26); Blood Urea Nitrogen 36 mg/dL (6-20); Calcium 8.9 mg/dL (8.6-10.3); Carbon Dioxide 22 mEq/L (23-29); Chloride 101 mEq/L (98-107); Glucose 284 mg/dL (70-105); Osmolality,Calculated 295 (280-300); Potassium 4.3 mEq/L (3.5-5.1); Sodium 133 mEq/L (136-145); eGFR For African Americans > 60 (> 60); eGFR For Non-African Americans 54 (> 60)
[2020-09-21] MEDS: Insulin LISPRO 300 UNITS/3 ML VIAL SUBQ SCH ×3 (07:25→20:28)
[2020-09-21] MEDS: Metoprolol XL (24 HR) Succ 50 MG TAB.ER.24H PO SCH (08:55)
[2020-09-21] MEDS: Nicotine 14 MG PATCH.TD24 TD SCH (08:55)
[2020-09-21] MEDS: Aspirin Enteric Coated 81 MG Tablet PO SCH (08:55)
[2020-09-21] MEDS: Furosemide 20 MG TABLET PO SCH (08:55)
[2020-09-21] MEDS: Isosorbide MONOnitrate (24 HR) 30 MG TAB.ER.24H PO SCH (08:56)
[2020-09-21] MEDS: Gabapentin 400 MG CAPSULE PO SCH ×4 (08:56→20:25)
[2020-09-21] MEDS: Insulin DETEMIR 100 UNIT/ML X5UNITS SUBQ SCH ×2 (08:59→20:24)
[2020-09-21] MEDS: Fluticasone Propionate Nasal 50 MCG/SPRAY BOTTLE NS SCH (08:59)
[2020-09-21] MEDS: hydrOXYzine pamoate 25 MG CAPSULE PO PRN ×2 (09:07→20:26)
[2020-09-21] MEDS: *HR* Ticagrelor 90 MG TABLET PO SCH ×2 (09:16→20:27)
[2020-09-21 13:06] LABS: BUN/Creatinine Ratio 29 (6-26); Blood Urea Nitrogen 32 mg/dL (6-20); Calcium 9.7 mg/dL (8.6-10.3); Carbon Dioxide 23 mEq/L (23-29); Chloride 104 mEq/L (98-107); Glucose 191 mg/dL (70-105); Osmolality,Calculated 290 (280-300); Potassium 4.3 mEq/L (3.5-5.1); Sodium 134 mEq/L (136-145); eGFR For African Americans > 60 (> 60); eGFR For Non-African Americans > 60 (> 60)
[2020-09-21] MEDS: Melatonin 3 MG TABLET PO PRN (22:40)
[2020-09-21] MEDS: Heparin 25,000UNIT/250ML 1/2NS 25,000 UNIT/250 ML IV.SOLN IVC SCH (22:46)
[2020-09-22] MEDS: Gabapentin 400 MG CAPSULE PO SCH ×3 (08:08→17:11)
[2020-09-22] MEDS: Metoprolol XL (24 HR) Succ 50 MG TAB.ER.24H PO SCH (08:08)
[2020-09-22] MEDS: Isosorbide MONOnitrate (24 HR) 30 MG TAB.ER.24H PO SCH (08:08)
[2020-09-22] MEDS: Aspirin Enteric Coated 81 MG Tablet PO SCH (08:08)
[2020-09-22] MEDS: hydrOXYzine pamoate 25 MG CAPSULE PO PRN (08:09)
[2020-09-22] MEDS: Nicotine 14 MG PATCH.TD24 TD SCH (08:09)
[2020-09-22] MEDS: *HR* Ticagrelor 90 MG TABLET PO SCH (08:09)
[2020-09-22] MEDS: Insulin DETEMIR 100 UNIT/ML X5UNITS SUBQ SCH (08:13)
[2020-09-22] MEDS: Fluticasone Propionate Nasal 50 MCG/SPRAY BOTTLE NS SCH (08:16)
[2020-09-22] MEDS: Insulin LISPRO 300 UNITS/3 ML VIAL SUBQ SCH ×3 (08:16→17:19)
[2020-09-22 09:07] LABS: Basophils # 0.1 K/mcL (0.0-0.2); Basophils % 1.2 %; Eosinophils # 0.9 K/mcL (0.0-0.6); Eosinophils % 8.4 %; Hematocrit 47.3 % (37.5-50.1); Immature Granulocytes % 0.4 % (0-4); Lymphocytes # 3.4 K/mcL (0.6-4.6); Lymphocytes % 30.2 %; Mean Corpuscular HGB Conc 32.3 g/dL (31.6-35.5); Mean Corpuscular Hemoglobin 25.5 pg (28.0-33.3); Mean Corpuscular Volume 78.8 fL (83.0-100.0); Mean Platelet Volume 11.2 fL (9.4-12.4); Monocytes % 8.6 %; Neutrophils # 5.7 K/mcL (1.6-8.9); Platelet Count 257 K/mcL (140-400); Red Cell Distribution Width 14.9 % (11.5-14.5); Segmented Neutrophils % 51.2 %; White Blood Count 11.1 K/mcL (4.3-11.1)
[2020-09-22 09:10] LABS: Hemoglobin 15.3 g/dL (12.9-16.9)
[2020-09-22 09:31] LABS: BUN/Creatinine Ratio 30 (6-26); Blood Urea Nitrogen 35 mg/dL (6-20); Calcium 9.5 mg/dL (8.6-10.3); Carbon Dioxide 20 mEq/L (23-29); Chloride 104 mEq/L (98-107); Glucose 221 mg/dL (70-105); Osmolality,Calculated 289 (280-300); Potassium 4.4 mEq/L (3.5-5.1); Sodium 132 mEq/L (136-145); eGFR For African Americans > 60 (> 60); eGFR For Non-African Americans > 60 (> 60)
[2020-09-22] MEDS ORDERED: 0.9 % Sodium Chloride 1,000 ML ONE (11:20)
[2020-09-22] MEDS ORDERED: ISOVUE-370 200 ML INFUS..BTL ONE ×2 (11:20→13:51)
[2020-09-22] MEDS ORDERED: Heparin 1,000 UNITS/500 mL 500 ML ONE (11:20)
[2020-09-22] MEDS ORDERED: Nitroglycerin 1,000 MCG/5 ML VIAL IV ONE (11:20)
[2020-09-22] MEDS ORDERED: *HR* Heparin 10,000 UNIT/10 ML VIAL ONE (11:20)
[2020-09-22] MEDS ORDERED: *HR* FentaNYL (PF) 100 MCG/2 ML VIAL ONE (12:36)
[2020-09-22] MEDS ORDERED: *HR* Midazolam HCl 2 MG/2 ML VIAL ONE (12:36)
[2020-09-22] MEDS ORDERED: Tirofiban 12.5 MG/250ML 12.5 MG/250 ML BAG ONE (13:40)
[2020-09-22] MEDS ORDERED: Tirofiban 12.5 MG/250ML 12.5 MG/250 ML BAG IVC SCH (14:30)
[2020-09-22] MEDS ORDERED: hydrOXYzine pamoate 25 MG CAPSULE PO SCH (15:00)
[2020-09-22] MEDS: Heparin 25,000UNIT/250ML 1/2NS 25,000 UNIT/250 ML IV.SOLN IVC SCH (17:42)
[2020-09-22] MEDS ORDERED: Acetaminophen IV 1,000 MG/100 ML BAG IVPB ONE (20:04)
[2020-09-22] MEDS ORDERED: Insulin DETEMIR 100 UNIT/ML X5UNITS SUBQ SCH (21:00)
[2020-09-22 21:44] VITALS: BP 131/80
== END 2020-09-22 22:00 | disposition left against medical advice (07) | DRG 175 ==
LOC: 3ANU → SUATTDRO 09-20 17:52 → 3BNU 09-22 16:55
PROVIDERS: ADMIT Internal Medicine; ATTEND General Practice

== ENCOUNTER 2020-09-27 07:54 | Inpatient (IN) ==
[2020-09-27 08:24] LABS: Basophils # 0.3 K/mcL (0.0-0.2); Basophils % 1.2 %; Eosinophils # 1.8 K/mcL (0.0-0.6); Eosinophils % 8.3 %; Hematocrit 53.9 % (37.5-50.1); Hemoglobin 16.7 g/dL (12.9-16.9); Immature Granulocytes % 0.7 % (0-4); Lymphocytes # 6.9 K/mcL (0.6-4.6); Lymphocytes % 31.7 %; Mean Corpuscular Hemoglobin 25.9 pg (28.0-33.3); Mean Corpuscular Volume 83.6 fL (83.0-100.0); Mean Platelet Volume 11.6 fL (9.4-12.4); Monocytes % 9.1 %; Neutrophils # 10.6 K/mcL (1.6-8.9); Platelet Count 350 K/mcL (140-400); Red Blood Count 6.45 M/mcL (4.19-5.50); Red Cell Distribution Width 16.1 % (11.5-14.5); White Blood Count 21.6 K/mcL (4.3-11.1)
[2020-09-27 08:32] LABS: VBG HCO3 20 mEq/L (21-27); VBG PCO2 61 mmHg (41-51); VBG PH 7.12 pH Units (7.32-7.42); VBG PO2 33 mmHg (25-50)
[2020-09-27 08:45] LABS: Reactive Lymphocytes Present (Not Present)
[2020-09-27 08:47] LABS: Alanine Aminotransferase 27 Units/L (7-52); Albumin 4.9 g/dL (3.5-5.7); Albumin/Globulin Ratio 1.4 (1.1-2.2); Alkaline Phosphatase 126 Units/L (34-104); Aspartate Amino Transferase 14 Units/L (13-39); BUN/Creatinine Ratio 17 (6-26); Bilirubin,Total 0.4 mg/dL (0.3-1.0); Blood Urea Nitrogen 23 mg/dL (6-20); Calcium 10.4 mg/dL (8.6-10.3); Carbon Dioxide 18 mEq/L (23-29); Chloride 102 mEq/L (98-107); Globulin 3.6 g/dL (2.4-3.5); Glucose 311 mg/dL (70-105); Osmolality,Calculated 297 (280-300); Potassium 4.5 mEq/L (3.5-5.1); Sodium 136 mEq/L (136-145); Total Protein 8.5 g/dL (6.4-8.9); eGFR For African Americans > 60 (> 60); eGFR For Non-African Americans 56 (> 60)
[2020-09-27 08:50] LABS: Troponin I 0.05 ng/mL (< 0.04)
[2020-09-27 08:53] LABS: Large Platelets Present (Not Present)
[2020-09-27] MEDS ORDERED: Piperacillin/Tazobactam 3.375 GM in 0.9 % Sodium Chloride Mini Bag 100 ML IVPB ONE (09:20)
[2020-09-27] MEDS ORDERED: *HR* Heparin 5,000 UNIT/ML VIAL IVP PRN ×2 (09:53)
[2020-09-27] MEDS ORDERED: *HR* Heparin 5,000 UNIT/ML VIAL IVP ONE (09:53)
[2020-09-27] MEDS: Heparin 25,000UNIT/250ML 1/2NS 25,000 UNIT/250 ML IV.SOLN IVC SCH (10:40)
[2020-09-27] MEDS ORDERED: Furosemide 40 MG/4 ML VIAL IVP ONE (10:50)
[2020-09-27] MEDS ORDERED: D5% in Water 1,000 ML IVC PRN (10:57)
[2020-09-27] MEDS ORDERED: Dextrose Gel 15 GM/37.5 ML TUBE PO PRN ×2 (10:57)
[2020-09-27] MEDS ORDERED: Naloxone 0.4 MG/ML INJ IVP PRN (10:57)
[2020-09-27] MEDS ORDERED: Acetaminophen 325 MG TABLET PO PRN (10:57)
[2020-09-27] MEDS ORDERED: Ondansetron 4 MG/2 ML VIAL IVP PRN (10:57)
[2020-09-27] MEDS ORDERED: *HR* Dextrose 50 % in Water (Vial) 50 ML VIAL IVP PRN (10:57)
[2020-09-27 11:57] LABS: ABG Base Excess -4 mEq/L (-2 to 3); ABG HCO3 19 mEq/L (21-27); ABG Oxygen Saturation 98 % (95-98); ABG PCO2 29 mmHg (35-45); ABG PH 7.42 pH Units (7.32-7.45); ABG PO2 98 mmHg (85-104); ABG TCO2 20 mEq/L (20-26)
[2020-09-27 12:09] LABS: Adenovirus Not Detected (Not Detect); Bordetella Pertussis Not Detected (Not Detect); Chlamydophila pneumoniae Not Detected (Not Detect); Coronavirus 229E Not Detected (Not Detect); Coronavirus HKU1 Not Detected (Not Detect); Coronavirus NL63 Not Detected (Not Detect); Coronavirus OC43 Not Detected (Not Detect); Human Metapneumovirus Not Detected (Not Detect); Human Rhinovirus/Enterovirus Not Detected (Not Detect); Influenza A Subtype 2009 H1 Not Detected (Not Detect); Influenza B Not Detected (Not Detect); Mycoplasma pneumoniae Not Detected (Not Detect); Parainfluenza Virus 1 Not Detected (Not Detect); Parainfluenza Virus 2 Not Detected (Not Detect); Parainfluenza Virus 3 Not Detected (Not Detect); Parainfluenza Virus 4 Not Detected (Not Detect); Respiratory Syncytial Virus Not Detected (Not Detect); SARS-CoV-2 Not Detected (Not Detect)
[2020-09-27] MEDS: Insulin LISPRO 300 UNITS/3 ML VIAL SUBQ SCH ×2 (12:55→17:04)
[2020-09-27] MEDS: Aspirin 81 MG TAB.CHEW PO SCH (12:56)
[2020-09-27] MEDS: *HR* Ticagrelor 90 MG TABLET PO SCH ×2 (12:56→20:39)
[2020-09-27 13:08] LABS: BUN/Creatinine Ratio 21 (6-26); Blood Urea Nitrogen 23 mg/dL (6-20); Calcium 9.5 mg/dL (8.6-10.3); Carbon Dioxide 19 mEq/L (23-29); Chloride 106 mEq/L (98-107); Glucose 238 mg/dL (70-105); Osmolality,Calculated 289 (280-300); Potassium 5.5 mEq/L (3.5-5.1); Sodium 134 mEq/L (136-145); eGFR For African Americans > 60 (> 60); eGFR For Non-African Americans > 60 (> 60)
[2020-09-27] MEDS: Metoprolol XL (24 HR) Succ 50 MG TAB.ER.24H PO SCH (17:17)
[2020-09-27] MEDS ORDERED: *HR* HYDROcodone/Acet 5/325 mg TABLET PO ONE (17:27)
[2020-09-27] MEDS ORDERED: QUEtiapine Fumarate 100 MG TABLET PO PRN (17:47)
[2020-09-27] MEDS: Piperacillin/Tazobactam 3.375 GM in 0.9 % Sodium Chloride Mini Bag 100 ML IVPB SCH (17:53)
[2020-09-27] MEDS: Gabapentin 400 MG CAPSULE PO SCH (20:39)
[2020-09-27] MEDS ORDERED: HydrOXYzine SYP 10 MG/5 ML UDC PO ONE ×2 (21:27→22:46)
[2020-09-27] MEDS ORDERED: HydrOXYzine SYP 10 MG/5 ML UDC PO PRN (21:30)
[2020-09-28] MEDS: Piperacillin/Tazobactam 3.375 GM in 0.9 % Sodium Chloride Mini Bag 100 ML IVPB SCH ×3 (02:51→17:21)
[2020-09-28 02:54] LABS: Basophils # 0.2 K/mcL (0.0-0.2); Basophils % 1.1 %; Eosinophils # 1.2 K/mcL (0.0-0.6); Eosinophils % 7.3 %; Hematocrit 45.1 % (37.5-50.1); Immature Granulocytes % 0.4 % (0-4); Lymphocytes # 3.5 K/mcL (0.6-4.6); Lymphocytes % 22.2 %; Mean Corpuscular HGB Conc 32.4 g/dL (31.6-35.5); Mean Corpuscular Hemoglobin 25.8 pg (28.0-33.3); Mean Corpuscular Volume 79.8 fL (83.0-100.0); Mean Platelet Volume 11.2 fL (9.4-12.4); Monocytes # 1.1 K/mcL (0.0-1.3); Monocytes % 6.8 %; Neutrophils # 9.8 K/mcL (1.6-8.9); Platelet Count 263 K/mcL (140-400); Red Blood Count 5.65 M/mcL (4.19-5.50); Red Cell Distribution Width 15.3 % (11.5-14.5); Segmented Neutrophils % 62.2 %; White Blood Count 15.7 K/mcL (4.3-11.1)
[2020-09-28 03:03] LABS: Hemoglobin 14.6 g/dL (12.9-16.9)
[2020-09-28] MEDS ORDERED: Nitroglycerin 0.4 MG TAB.SUBL SL ONE (05:44)
[2020-09-28] MEDS ORDERED: Furosemide 40 MG/4 ML VIAL ONE (06:06)
[2020-09-28] MEDS: Furosemide 40 MG/4 ML VIAL IVP SCH (06:09)
[2020-09-28] MEDS: Aspirin 81 MG TAB.CHEW PO SCH (08:55)
[2020-09-28] MEDS: Gabapentin 400 MG CAPSULE PO SCH ×4 (08:55→21:11)
[2020-09-28] MEDS: Metoprolol XL (24 HR) Succ 50 MG TAB.ER.24H PO SCH (08:55)
[2020-09-28] MEDS: Insulin LISPRO 300 UNITS/3 ML VIAL SUBQ SCH ×3 (08:56→16:27)
[2020-09-28] MEDS: *HR* Ticagrelor 90 MG TABLET PO SCH ×2 (08:57→21:13)
[2020-09-28] MEDS: Fluticasone Propionate Nasal 50 MCG/SPRAY BOTTLE NS SCH (08:57)
[2020-09-28 09:16] LABS: BUN/Creatinine Ratio 18 (6-26); Blood Urea Nitrogen 20 mg/dL (6-20); Calcium 10.2 mg/dL (8.6-10.3); Carbon Dioxide 25 mEq/L (23-29); Chloride 99 mEq/L (98-107); Glucose 181 mg/dL (70-105); Osmolality,Calculated 285 (280-300); Potassium 4.4 mEq/L (3.5-5.1); Sodium 134 mEq/L (136-145); eGFR For African Americans > 60 (> 60); eGFR For Non-African Americans > 60 (> 60)
[2020-09-28] MEDS: Heparin 25,000UNIT/250ML 1/2NS 25,000 UNIT/250 ML IV.SOLN IVC SCH (09:56)
[2020-09-28] MEDS ORDERED: Insulin LISPRO 300 UNITS/3 ML VIAL SUBQ SCH (21:00)
[2020-09-29] MEDS: Piperacillin/Tazobactam 3.375 GM in 0.9 % Sodium Chloride Mini Bag 100 ML IVPB SCH ×2 (01:36→09:47)
[2020-09-29 05:05] LABS: Basophils # 0.1 K/mcL (0.0-0.2); Basophils % 0.9 %; Eosinophils % 9.6 %; Hematocrit 43.9 % (37.5-50.1); Hemoglobin 14.8 g/dL (12.9-16.9); Immature Granulocytes % 0.4 % (0-4); Lymphocytes # 3.2 K/mcL (0.6-4.6); Lymphocytes % 30.2 %; Mean Corpuscular HGB Conc 33.7 g/dL (31.6-35.5); Mean Corpuscular Hemoglobin 26.4 pg (28.0-33.3); Mean Corpuscular Volume 78.3 fL (83.0-100.0); Mean Platelet Volume 11.2 fL (9.4-12.4); Monocytes % 9.2 %; Neutrophils # 5.3 K/mcL (1.6-8.9); Platelet Count 285 K/mcL (140-400); Red Blood Count 5.61 M/mcL (4.19-5.50); Red Cell Distribution Width 14.8 % (11.5-14.5); Segmented Neutrophils % 49.7 %; White Blood Count 10.7 K/mcL (4.3-11.1)
[2020-09-29 05:17] LABS: BUN/Creatinine Ratio 19 (6-26); Blood Urea Nitrogen 24 mg/dL (6-20); Calcium 9.6 mg/dL (8.6-10.3); Carbon Dioxide 23 mEq/L (23-29); Chloride 101 mEq/L (98-107); Glucose 202 mg/dL (70-105); Osmolality,Calculated 284 (280-300); Potassium 4.1 mEq/L (3.5-5.1); Sodium 132 mEq/L (136-145); eGFR For African Americans > 60 (> 60); eGFR For Non-African Americans 60 (> 60)
[2020-09-29] MEDS ORDERED: lisinopriL 5 MG TABLET PO SCH (09:00)
[2020-09-29] MEDS: *HR* Ticagrelor 90 MG TABLET PO SCH (09:34)
[2020-09-29] MEDS: Gabapentin 400 MG CAPSULE PO SCH (09:34)
[2020-09-29] MEDS: Aspirin 81 MG TAB.CHEW PO SCH (09:34)
[2020-09-29] MEDS: Metoprolol XL (24 HR) Succ 50 MG TAB.ER.24H PO SCH (09:34)
[2020-09-29] MEDS: Furosemide 40 MG/4 ML VIAL IVP SCH (09:35)
[2020-09-29] MEDS: Fluticasone Propionate Nasal 50 MCG/SPRAY BOTTLE NS SCH (09:36)
[2020-09-29] MEDS: Insulin LISPRO 300 UNITS/3 ML VIAL SUBQ SCH ×2 (09:36→14:45)
[2020-09-29 10:44] VITALS: BP 120/81
== END 2020-09-29 15:48 | disposition home or self-care (01) | DRG 720 ==
LOC: 2NNU 07:54 → EMEROOARM 07:54 → 2NNU 11:49 → SUATTDRO 12:15 → CDU 09-28 11:29 → 2ANU 09-28 15:26
PROVIDERS: ADMIT Internal Medicine; ATTEND Family Medicine

== ENCOUNTER 2021-06-12 01:12 | Inpatient (IN) ==
[2021-06-12] MEDS ORDERED: Naloxone 0.4 MG/ML INJ IVP PRN (06:09)
[2021-06-12] MEDS ORDERED: Melatonin 3 MG TABLET PO PRN (06:09)
[2021-06-12] MEDS ORDERED: D5% in Water 1,000 ML IVC PRN (06:14)
[2021-06-12] MEDS ORDERED: Dextrose Gel 15 GM/37.5 ML TUBE PO PRN ×2 (06:14)
[2021-06-12] MEDS ORDERED: *HR* Dextrose 50 % in Water (Syg) 50 ML SYRINGE IVP PRN (06:14)
[2021-06-12] MEDS ORDERED: Budesonide/Formoterol 160/4.5 1 PUFF INH IH ONE (07:25)
[2021-06-12 07:30] LABS: Basophils # 0.1 K/mcL (0.0-0.2); Basophils % 0.5 %; Eosinophils % 0.2 %; Hematocrit 50.7 % (37.5-50.1); Hemoglobin 16.1 g/dL (12.9-16.9); Immature Granulocytes % 0.6 % (0-4); Lymphocytes # 1.3 K/mcL (0.6-4.6); Lymphocytes % 7.7 %; Mean Corpuscular HGB Conc 31.8 g/dL (31.6-35.5); Mean Corpuscular Hemoglobin 24.3 pg (28.0-33.3); Mean Corpuscular Volume 76.6 fL (83.0-100.0); Mean Platelet Volume 10.6 fL (9.4-12.4); Monocytes % 5.9 %; Neutrophils # 14.5 K/mcL (1.6-8.9); Platelet Count 329 K/mcL (140-400); Red Blood Count 6.62 M/mcL (4.19-5.50); Red Cell Distribution Width 16.1 % (11.5-14.5); Segmented Neutrophils % 85.1 %
[2021-06-12 07:47] LABS: Prothrombin Time 10.9 Seconds (9.4-12.1)
[2021-06-12] MEDS: Budesonide/Formoterol 160/4.5 1 PUFF INH IH SCH ×2 (07:55→20:02)
[2021-06-12] MEDS: Ipratropium 1 PUFF INHALER IH SCH ×3 (07:55→20:01)
[2021-06-12] MEDS ORDERED: Ipratropium 1 PUFF INHALER IH ONE (07:59)
[2021-06-12 08:00] LABS: Albumin 4.4 g/dL (3.5-5.7); Albumin/Globulin Ratio 1.3 (1.1-2.2); Bilirubin,Total 0.4 mg/dL (0.3-1.0); Calcium 9.8 mg/dL (8.6-10.3); Globulin 3.3 g/dL (2.4-3.5); Magnesium 1.7 mg/dL (1.6-2.6); Phosphorous 3.6 mg/dL (2.7-4.5); Potassium 5.1 mEq/L (3.5-5.1); Total Protein 7.7 g/dL (6.4-8.9); Troponin I 0.46 ng/mL (< 0.04)
[2021-06-12] MEDS ORDERED: Ipratropium/Albuterol Neb 3 ML IH SCH (08:00)
[2021-06-12] MEDS ORDERED: *HR* Heparin 5,000 UNIT/ML VIAL IVP PRN ×2 (08:39)
[2021-06-12] MEDS ORDERED: *HR* Heparin 5,000 UNIT/ML VIAL IVP ONE (08:39)
[2021-06-12] MEDS ORDERED: Aspirin 325 MG TABLET PO ONE (08:40)
[2021-06-12] MEDS ORDERED: Nitroglycerin 0.4 MG TAB.SUBL SL PRN (08:40)
[2021-06-12] MEDS: Insulin LISPRO 300 UNITS/3 ML VIAL SUBQ SCH ×4 (08:48→21:54)
[2021-06-12] MEDS ORDERED: Perflutren Lipid Microsphere 1.3 ML in 0.9 % Sodium Chloride 8.7 ML IVP PRN (08:50)
[2021-06-12] MEDS: Metoprolol XL (24 HR) Succ 50 MG TAB.ER.24H PO SCH (09:30)
[2021-06-12] MEDS: Gabapentin 300 MG CAPSULE PO SCH ×4 (09:30→21:35)
[2021-06-12] MEDS: *HR* Ticagrelor 90 MG TABLET PO SCH ×2 (09:30→21:35)
[2021-06-12] MEDS: Furosemide 40 MG/4 ML VIAL IVP SCH (09:30)
[2021-06-12 10:15] LABS: Hematocrit 47.3 % (37.5-50.1); Hemoglobin 15.2 g/dL (12.9-16.9); Mean Corpuscular HGB Conc 32.1 g/dL (31.6-35.5); Mean Corpuscular Hemoglobin 24.5 pg (28.0-33.3); Mean Corpuscular Volume 76.2 fL (83.0-100.0); Mean Platelet Volume 10.6 fL (9.4-12.4); Platelet Count 311 K/mcL (140-400); Red Blood Count 6.21 M/mcL (4.19-5.50); Red Cell Distribution Width 15.7 % (11.5-14.5); White Blood Count 16.5 K/mcL (4.3-11.1)
[2021-06-12 10:33] LABS: Heparin anti-factor XA UFH < 0.04 IU/mL (0.30-0.70)
[2021-06-12 10:34] LABS: Prothrombin Time 10.7 Seconds (9.4-12.1)
[2021-06-12 10:35] LABS: Adenovirus Not Detected (Not Detect); Bordetella Pertussis Not Detected (Not Detect); Chlamydophila pneumoniae Not Detected (Not Detect); Coronavirus 229E Not Detected (Not Detect); Coronavirus HKU1 Not Detected (Not Detect); Coronavirus NL63 Not Detected (Not Detect); Coronavirus OC43 Not Detected (Not Detect); Human Metapneumovirus Not Detected (Not Detect); Human Rhinovirus/Enterovirus Not Detected (Not Detect); Influenza A Subtype 2009 H1 Not Detected (Not Detect); Influenza B Not Detected (Not Detect); Mycoplasma pneumoniae Not Detected (Not Detect); Parainfluenza Virus 1 Not Detected (Not Detect); Parainfluenza Virus 2 Not Detected (Not Detect); Parainfluenza Virus 3 Not Detected (Not Detect); Parainfluenza Virus 4 Not Detected (Not Detect); Respiratory Syncytial Virus Not Detected (Not Detect); SARS-CoV-2 Not Detected (Not Detect)
[2021-06-12] MEDS: Heparin 25,000UNIT/250ML 1/2NS 25,000 UNIT/250 ML IV.SOLN IVC SCH (11:29)
[2021-06-12] MEDS: Cefepime HCl 1,000 MG in 0.9 % Sodium Chloride 10 ML IVP SCH (17:20)
[2021-06-12] MEDS: hydrOXYzine pamoate 25 MG CAPSULE PO PRN (17:20)
[2021-06-12] MEDS ORDERED: MethylPREDNISolone 40 MG/ML VIAL IVP SCH (18:00)
[2021-06-12] MEDS ORDERED: QUEtiapine Fumarate 100 MG TABLET PO PRN (21:00)
[2021-06-13] MEDS ORDERED: Azithromycin 500 MG VIAL ONE
[2021-06-13] MEDS ORDERED: Azithromycin 500 MG in 0.9 % Sodium Chloride 250 ML IVPB SCH
[2021-06-13] MEDS ORDERED: Ondansetron 4 MG/2 ML VIAL IVP PRN (01:07)
[2021-06-13] MEDS: Ipratropium 1 PUFF INHALER IH SCH ×4 (03:40→20:02)
[2021-06-13 03:42] LABS: Prothrombin Time 11.5 Seconds (9.4-12.1)
[2021-06-13] MEDS: Cefepime HCl 1,000 MG in 0.9 % Sodium Chloride 10 ML IVP SCH (05:39)
[2021-06-13] MEDS: Budesonide/Formoterol 160/4.5 1 PUFF INH IH SCH ×2 (07:21→20:02)
[2021-06-13] MEDS: Furosemide 40 MG/4 ML VIAL IVP SCH (08:11)
[2021-06-13] MEDS: Metoprolol XL (24 HR) Succ 50 MG TAB.ER.24H PO SCH (08:11)
[2021-06-13] MEDS: *HR* Ticagrelor 90 MG TABLET PO SCH ×2 (08:11→21:19)
[2021-06-13] MEDS: Aspirin 81 MG TAB.CHEW PO SCH (08:11)
[2021-06-13] MEDS: Gabapentin 300 MG CAPSULE PO SCH ×4 (08:11→21:19)
[2021-06-13] MEDS: Insulin LISPRO 300 UNITS/3 ML VIAL SUBQ SCH ×5 (08:12→21:20)
[2021-06-13] MEDS ORDERED: Azithromycin 250 MG TABLET PO SCH (09:00)
[2021-06-13 09:23] LABS: Hematocrit 39.1 % (37.5-50.1); Hemoglobin 12.8 g/dL (12.9-16.9); Mean Corpuscular HGB Conc 32.7 g/dL (31.6-35.5); Mean Corpuscular Hemoglobin 25.2 pg (28.0-33.3); Mean Platelet Volume 11.4 fL (9.4-12.4); Platelet Count 250 K/mcL (140-400); Red Blood Count 5.08 M/mcL (4.19-5.50); Red Cell Distribution Width 15.6 % (11.5-14.5); White Blood Count 9.2 K/mcL (4.3-11.1)
[2021-06-13 09:42] LABS: Calcium 9.2 mg/dL (8.6-10.3); Potassium 4.7 mEq/L (3.5-5.1)
[2021-06-13] MEDS: Heparin 25,000UNIT/250ML 1/2NS 25,000 UNIT/250 ML IV.SOLN IVC SCH (15:46)
[2021-06-13] MEDS: Cefepime HCl 2,000 MG in 0.9 % Sodium Chloride 10 ML IVP SCH (17:41)
[2021-06-13] MEDS: hydrOXYzine pamoate 25 MG CAPSULE PO PRN (17:41)
[2021-06-13] MEDS ORDERED: Cefepime HCl 2,000 MG in 0.9 % Sodium Chloride Mini Bag 100 ML IVPB SCH (18:00)
[2021-06-13] MEDS: Insulin DETEMIR 100 UNIT/ML X5UNITS SUBQ SCH (21:20)
[2021-06-14] MEDS: Ipratropium 1 PUFF INHALER IH SCH ×4 (03:35→20:13)
[2021-06-14] MEDS: hydrOXYzine pamoate 25 MG CAPSULE PO PRN ×3 (04:34→19:41)
[2021-06-14] MEDS: Acetaminophen 325 MG TABLET PO PRN ×2 (04:36→16:01)
[2021-06-14] MEDS: Doxycycline 100 MG in 0.9 % Sodium Chloride Mini Bag 100 ML IVPB SCH ×2 (05:43→18:05)
[2021-06-14] MEDS: Cefepime HCl 2,000 MG in 0.9 % Sodium Chloride 10 ML IVP SCH ×2 (05:45→18:07)
[2021-06-14] MEDS: Budesonide/Formoterol 160/4.5 1 PUFF INH IH SCH ×2 (07:38→20:12)
[2021-06-14] MEDS: Gabapentin 300 MG CAPSULE PO SCH ×4 (08:02→19:40)
[2021-06-14] MEDS: Aspirin 81 MG TAB.CHEW PO SCH (08:02)
[2021-06-14] MEDS: Insulin LISPRO 300 UNITS/3 ML VIAL SUBQ SCH ×7 (08:03→19:41)
[2021-06-14] MEDS: *HR* Ticagrelor 90 MG TABLET PO SCH ×2 (08:03→19:40)
[2021-06-14] MEDS: Metoprolol XL (24 HR) Succ 50 MG TAB.ER.24H PO SCH (08:03)
[2021-06-14] MEDS: Furosemide 40 MG/4 ML VIAL IVP SCH (08:04)
[2021-06-14] MEDS ORDERED: Nitroglycerin 0.4 MG TAB.SUBL SL PRN (09:58)
[2021-06-14 10:58] LABS: Basophils # 0.1 K/mcL (0.0-0.2); Basophils % 0.8 %; Eosinophils # 0.3 K/mcL (0.0-0.6); Eosinophils % 2.6 %; Hematocrit 41.4 % (37.5-50.1); Hemoglobin 13.5 g/dL (12.9-16.9); Immature Granulocytes % 0.3 % (0-4); Lymphocytes % 16.5 %; Mean Corpuscular HGB Conc 32.6 g/dL (31.6-35.5); Mean Corpuscular Hemoglobin 24.8 pg (28.0-33.3); Mean Corpuscular Volume 76.1 fL (83.0-100.0); Mean Platelet Volume 10.5 fL (9.4-12.4); Neutrophils # 8.8 K/mcL (1.6-8.9); Platelet Count 252 K/mcL (140-400); Red Blood Count 5.44 M/mcL (4.19-5.50); Red Cell Distribution Width 15.1 % (11.5-14.5); Segmented Neutrophils % 71.8 %; White Blood Count 12.2 K/mcL (4.3-11.1)
[2021-06-14 11:18] LABS: BUN/Creatinine Ratio 22 (6-26); Blood Urea Nitrogen 30 mg/dL (6-20); Calcium 9.9 mg/dL (8.6-10.3); Carbon Dioxide 25 mEq/L (23-29); Chloride 96 mEq/L (98-107); Glucose 221 mg/dL (70-105); Osmolality,Calculated 287 (280-300); Potassium 4.5 mEq/L (3.5-5.1); Sodium 132 mEq/L (136-145); eGFR For African Americans > 60 (> 60); eGFR For Non-African Americans 53 (> 60)
[2021-06-14 16:15] LABS: Amphetamine Screen,Urine Negative ng/mL (Cutoff=1000); Barbiturate Screen,Urine Negative ng/mL (Cutoff=200); Benzodiazepines Screen,Urine Negative ng/mL (Cutoff=200); Cannabinoid Screen,Urine Positive ng/mL (Cutoff = 50); Cocaine Screen,Urine Negative ng/mL (Cutoff= 300); Opiate Screen,Urine Positive ng/mL (Cutoff=300); Phencyclidine Screen,Urine Negative ng/mL (Cutoff=25)
[2021-06-14] MEDS: Insulin DETEMIR 100 UNIT/ML X5UNITS SUBQ SCH (19:41)
[2021-06-14] MEDS: *HR* Heparin 5,000 UNIT/ML VIAL SQ SCH (22:33)
[2021-06-15 02:16] LABS: BUN/Creatinine Ratio 27 (6-26); Blood Urea Nitrogen 37 mg/dL (6-20); Calcium 9.8 mg/dL (8.6-10.3); Carbon Dioxide 25 mEq/L (23-29); Chloride 97 mEq/L (98-107); Glucose 287 mg/dL (70-105); Magnesium 1.6 mg/dL (1.6-2.6); Osmolality,Calculated 291 (280-300); Potassium 4.9 mEq/L (3.5-5.1); Sodium 131 mEq/L (136-145); eGFR For African Americans > 60 (> 60); eGFR For Non-African Americans 54 (> 60)
[2021-06-15] MEDS: Ipratropium 1 PUFF INHALER IH SCH ×2 (03:48→07:26)
[2021-06-15 04:49] LABS: Mycoplasma pneumoniae IgG 0.47 U/L (<=0.09)
[2021-06-15] MEDS: *HR* Heparin 5,000 UNIT/ML VIAL SQ SCH ×2 (05:17→13:40)
[2021-06-15] MEDS: Cefepime HCl 2,000 MG in 0.9 % Sodium Chloride 10 ML IVP SCH (05:17)
[2021-06-15] MEDS: Doxycycline 100 MG in 0.9 % Sodium Chloride Mini Bag 100 ML IVPB SCH (05:19)
[2021-06-15 06:41] VITALS: BP 148/91; PULSE 87; TEMP 97.7; O2SAT 100
[2021-06-15] MEDS: Budesonide/Formoterol 160/4.5 1 PUFF INH IH SCH (07:26)
[2021-06-15] MEDS: Insulin LISPRO 300 UNITS/3 ML VIAL SUBQ SCH ×4 (08:04→10:47)
[2021-06-15] MEDS: Gabapentin 300 MG CAPSULE PO SCH ×2 (08:05→13:40)
[2021-06-15] MEDS: *HR* Ticagrelor 90 MG TABLET PO SCH (08:07)
[2021-06-15] MEDS: Metoprolol XL (24 HR) Succ 50 MG TAB.ER.24H PO SCH (08:07)
[2021-06-15] MEDS ORDERED: Spironolactone 12.5 MG TABLET PO SCH (09:00)
[2021-06-15] MEDS ORDERED: Aspirin Enteric Coated 81 MG Tablet PO SCH (09:00)
[2021-06-15] MEDS ORDERED: Isosorbide MONOnitrate (24 HR) 30 MG TAB.ER.24H PO SCH (09:00)
[2021-06-15 10:14] LABS: Basophils # 0.1 K/mcL (0.0-0.2); Eosinophils # 0.3 K/mcL (0.0-0.6); Eosinophils % 2.6 %; Hematocrit 40.6 % (37.5-50.1); Hemoglobin 13.6 g/dL (12.9-16.9); Immature Granulocytes % 0.5 % (0-4); Lymphocytes # 1.5 K/mcL (0.6-4.6); Lymphocytes % 14.8 %; Mean Corpuscular HGB Conc 33.5 g/dL (31.6-35.5); Mean Corpuscular Hemoglobin 25.1 pg (28.0-33.3); Mean Platelet Volume 10.5 fL (9.4-12.4); Monocytes # 0.8 K/mcL (0.0-1.3); Monocytes % 7.9 %; Neutrophils # 7.5 K/mcL (1.6-8.9); Platelet Count 250 K/mcL (140-400); Red Blood Count 5.41 M/mcL (4.19-5.50); Red Cell Distribution Width 15.2 % (11.5-14.5); Segmented Neutrophils % 73.2 %; White Blood Count 10.2 K/mcL (4.3-11.1)
[2021-06-15] MEDS ORDERED: lisinopriL 5 MG TABLET PO SCH (10:30)
[2021-06-15] MEDS ORDERED: Insulin DETEMIR 100 UNIT/ML X5UNITS SUBQ SCH (21:00)
== END 2021-06-15 16:20 | disposition home or self-care (01) | DRG 720 ==
LOC: 2NNU → SUATTDRO 06:16 → 2NENU 10:46
PROVIDERS: ADMIT Internal Medicine; ATTEND Internal Medicine

== ENCOUNTER 2021-06-17 10:51 | Inpatient (IN) ==
[2021-06-17] MEDS ORDERED: Naloxone 0.4 MG/ML INJ IVP PRN (12:21)
[2021-06-17] MEDS ORDERED: Acetaminophen 325 MG TABLET PO PRN (12:21)
[2021-06-17] MEDS ORDERED: Mag Hydrox/Al Hydrox/Simeth 30 ML UDC PO PRN (12:21)
[2021-06-17] MEDS ORDERED: Ondansetron ODT 4 MG TAB.RAPDIS SL PRN (12:21)
[2021-06-17] MEDS ORDERED: *HR* Dextrose 50 % in Water (Syg) 50 ML SYRINGE IVP PRN (12:26)
[2021-06-17] MEDS ORDERED: D5% in Water 1,000 ML IVC PRN (12:26)
[2021-06-17] MEDS ORDERED: Dextrose Gel 15 GM/37.5 ML TUBE PO PRN ×2 (12:26)
[2021-06-17 13:56] LABS: Calcium 9.3 mg/dL (8.6-10.3); Potassium 5.1 mEq/L (3.5-5.1)
[2021-06-17] MEDS ORDERED: Vancomycin 1,500 MG/265 ML IV.SOLN IVPB ONE (14:00)
[2021-06-17] MEDS ORDERED: Cefepime HCl 2,000 MG in 0.9 % Sodium Chloride 10 ML IVP SCH (16:00)
[2021-06-17] MEDS: Insulin LISPRO 300 UNITS/3 ML VIAL SUBQ SCH ×2 (16:07→20:02)
[2021-06-17] MEDS: Cefepime HCl 2,000 MG in 0.9 % Sodium Chloride 10 ML IVP SCH (16:08)
[2021-06-17] MEDS: *HR* OxyCODONE Immed Rel 5 MG TABLET PO PRN (17:51)
[2021-06-17] MEDS ORDERED: *HR* Heparin 5,000 UNIT/ML VIAL SQ SCH (18:00)
[2021-06-17] MEDS ORDERED: QUEtiapine Fumarate 100 MG TABLET PO PRN (18:07)
[2021-06-17] MEDS: Gabapentin 400 MG CAPSULE PO SCH (20:01)
[2021-06-17] MEDS: *HR* Ticagrelor 90 MG TABLET PO SCH (20:01)
[2021-06-17] MEDS: Furosemide 40 MG/4 ML VIAL IVP SCH (20:01)
[2021-06-17] MEDS: hydrOXYzine pamoate 25 MG CAPSULE PO SCH (20:01)
[2021-06-17] MEDS ORDERED: *HR* Heparin 5,000 UNIT/ML VIAL IVP PRN ×2 (22:23)
[2021-06-17 23:04] LABS: Hematocrit 42.3 % (37.5-50.1); Hemoglobin 13.7 g/dL (12.9-16.9); Mean Corpuscular HGB Conc 32.4 g/dL (31.6-35.5); Mean Corpuscular Hemoglobin 24.6 pg (28.0-33.3); Mean Corpuscular Volume 75.8 fL (83.0-100.0); Mean Platelet Volume 11.4 fL (9.4-12.4); Platelet Count 268 K/mcL (140-400); Red Blood Count 5.58 M/mcL (4.19-5.50); Red Cell Distribution Width 15.7 % (11.5-14.5)
[2021-06-17 23:05] LABS: White Blood Count 15.5 K/mcL (4.3-11.1)
[2021-06-17 23:19] LABS: Heparin anti-factor XA UFH 0.04 IU/mL (0.30-0.70)
[2021-06-17 23:20] LABS: Prothrombin Time 10.9 Seconds (9.4-12.1)
[2021-06-17] MEDS: Heparin 25,000UNIT/250ML 1/2NS 25,000 UNIT/250 ML IV.SOLN IVC SCH (23:42)
[2021-06-18] MEDS: Melatonin 3 MG TABLET PO PRN ×2 (00:18→23:13)
[2021-06-18 00:54] LABS: Basophils # 0.1 K/mcL (0.0-0.2); Basophils % 0.8 %; Eosinophils # 0.2 K/mcL (0.0-0.6); Eosinophils % 1.6 %; Hematocrit 41.4 % (37.5-50.1); Hemoglobin 13.6 g/dL (12.9-16.9); Immature Granulocytes % 0.4 % (0-4); Lymphocytes # 2.3 K/mcL (0.6-4.6); Mean Corpuscular HGB Conc 32.9 g/dL (31.6-35.5); Mean Corpuscular Hemoglobin 25.1 pg (28.0-33.3); Mean Corpuscular Volume 76.5 fL (83.0-100.0); Mean Platelet Volume 11.4 fL (9.4-12.4); Monocytes # 1.1 K/mcL (0.0-1.3); Monocytes % 8.1 %; Neutrophils # 10.2 K/mcL (1.6-8.9); Platelet Count 269 K/mcL (140-400); Red Blood Count 5.41 M/mcL (4.19-5.50); Red Cell Distribution Width 15.8 % (11.5-14.5); Segmented Neutrophils % 73.1 %
[2021-06-18 01:23] LABS: Albumin/Globulin Ratio 1.2 (1.1-2.2); Bilirubin,Total 0.7 mg/dL (0.3-1.0); Calcium 9.4 mg/dL (8.6-10.3); Globulin 3.3 g/dL (2.4-3.5); Potassium 5.5 mEq/L (3.5-5.1); Total Protein 7.3 g/dL (6.4-8.9); Troponin I 10.78 ng/mL (< 0.04)
[2021-06-18] MEDS: Cefepime HCl 2,000 MG in 0.9 % Sodium Chloride 10 ML IVP SCH ×2 (01:24→12:59)
[2021-06-18] MEDS: Insulin LISPRO 300 UNITS/3 ML VIAL SUBQ SCH ×4 (07:59→20:25)
[2021-06-18] MEDS: Metoprolol XL (24 HR) Succ 50 MG TAB.ER.24H PO SCH (08:01)
[2021-06-18] MEDS: *HR* OxyCODONE Immed Rel 5 MG TABLET PO PRN ×3 (08:01→23:13)
[2021-06-18] MEDS: Gabapentin 400 MG CAPSULE PO SCH ×4 (08:01→20:24)
[2021-06-18] MEDS: lisinopriL 5 MG TABLET PO SCH (08:02)
[2021-06-18] MEDS: hydrOXYzine pamoate 25 MG CAPSULE PO SCH ×2 (08:02→20:24)
[2021-06-18] MEDS: Furosemide 40 MG/4 ML VIAL IVP SCH ×2 (08:03→20:24)
[2021-06-18] MEDS: Isosorbide MONOnitrate (24 HR) 30 MG TAB.ER.24H PO SCH (08:03)
[2021-06-18] MEDS: *HR* Ticagrelor 90 MG TABLET PO SCH ×2 (08:03→20:24)
[2021-06-18] MEDS: Spironolactone 12.5 MG TABLET PO SCH (08:03)
[2021-06-18 08:20] LABS: Estimated Average Glucose 246 mg/dl; Hemoglobin A1C 10.2 %
[2021-06-18] MEDS ORDERED: Aspirin Enteric Coated 81 MG Tablet PO SCH (09:00)
[2021-06-18] MEDS ORDERED: levoFLOXacin 750 MG/150 ML 750 MG/150 ML BAG IVPB SCH (09:00)
[2021-06-18] MEDS ORDERED: Aspirin 325 MG TABLET PO ONE (09:06)
[2021-06-18] MEDS ORDERED: Perflutren Lipid Microsphere 1.3 ML in 0.9 % Sodium Chloride 8.7 ML IVP PRN (09:38)
[2021-06-18] MEDS: Insulin DETEMIR 100 UNIT/ML X5UNITS SUBQ SCH (20:24)
[2021-06-19] MEDS: Heparin 25,000UNIT/250ML 1/2NS 25,000 UNIT/250 ML IV.SOLN IVC SCH (02:40)
[2021-06-19] MEDS: Cefepime HCl 2,000 MG in 0.9 % Sodium Chloride 10 ML IVP SCH ×2 (03:02→12:46)
[2021-06-19] MEDS: Insulin LISPRO 300 UNITS/3 ML VIAL SUBQ SCH ×4 (10:04→20:44)
[2021-06-19] MEDS: Spironolactone 12.5 MG TABLET PO SCH (10:05)
[2021-06-19] MEDS: hydrOXYzine pamoate 25 MG CAPSULE PO SCH ×2 (10:06→20:32)
[2021-06-19] MEDS: Metoprolol XL (24 HR) Succ 50 MG TAB.ER.24H PO SCH (10:06)
[2021-06-19] MEDS: Aspirin Enteric Coated 81 MG Tablet PO SCH (10:06)
[2021-06-19] MEDS: Gabapentin 400 MG CAPSULE PO SCH ×4 (10:06→20:31)
[2021-06-19] MEDS: *HR* Ticagrelor 90 MG TABLET PO SCH ×2 (10:06→20:31)
[2021-06-19] MEDS: Isosorbide MONOnitrate (24 HR) 30 MG TAB.ER.24H PO SCH (10:07)
[2021-06-19] MEDS: Furosemide 40 MG/4 ML VIAL IVP SCH (10:07)
[2021-06-19] MEDS: lisinopriL 5 MG TABLET PO SCH (10:07)
[2021-06-19] MEDS: *HR* OxyCODONE Immed Rel 5 MG TABLET PO PRN ×2 (10:18→20:32)
[2021-06-19 14:53] LABS: Hematocrit 39.6 % (37.5-50.1); Mean Corpuscular HGB Conc 32.8 g/dL (31.6-35.5); Mean Corpuscular Hemoglobin 25.1 pg (28.0-33.3); Mean Corpuscular Volume 76.6 fL (83.0-100.0); Mean Platelet Volume 11.2 fL (9.4-12.4); Platelet Count 267 K/mcL (140-400); Red Blood Count 5.17 M/mcL (4.19-5.50); Red Cell Distribution Width 15.4 % (11.5-14.5); White Blood Count 13.2 K/mcL (4.3-11.1)
[2021-06-19 15:08] LABS: Calcium 9.6 mg/dL (8.6-10.3); Magnesium 1.7 mg/dL (1.6-2.6)
[2021-06-19] MEDS: Cefdinir 300 MG CAPSULE PO SCH (20:31)
[2021-06-19] MEDS: Melatonin 3 MG TABLET PO PRN (20:32)
[2021-06-19] MEDS: Insulin DETEMIR 100 UNIT/ML X5UNITS SUBQ SCH (20:44)
[2021-06-20 02:07] LABS: Mean Corpuscular HGB Conc 31.7 g/dL (31.6-35.5); Mean Corpuscular Hemoglobin 24.5 pg (28.0-33.3); Mean Corpuscular Volume 77.3 fL (83.0-100.0); Mean Platelet Volume 11.8 fL (9.4-12.4); Platelet Count 237 K/mcL (140-400); Red Blood Count 4.66 M/mcL (4.19-5.50); Red Cell Distribution Width 15.3 % (11.5-14.5); White Blood Count 10.9 K/mcL (4.3-11.1)
[2021-06-20 02:08] LABS: Hemoglobin 11.4 g/dL (12.9-16.9)
[2021-06-20 02:25] LABS: Albumin 3.8 g/dL (3.5-5.7); Albumin/Globulin Ratio 1.5 (1.1-2.2); Bilirubin,Total 0.4 mg/dL (0.3-1.0); Calcium 9.2 mg/dL (8.6-10.3); Globulin 2.6 g/dL (2.4-3.5); Potassium 4.9 mEq/L (3.5-5.1); Total Protein 6.4 g/dL (6.4-8.9)
[2021-06-20] MEDS: Heparin 25,000UNIT/250ML 1/2NS 25,000 UNIT/250 ML IV.SOLN IVC SCH (06:37)
[2021-06-20] MEDS: hydrOXYzine pamoate 25 MG CAPSULE PO SCH (08:19)
[2021-06-20] MEDS: Gabapentin 400 MG CAPSULE PO SCH ×2 (08:20→12:30)
[2021-06-20] MEDS: Cefdinir 300 MG CAPSULE PO SCH (08:20)
[2021-06-20] MEDS: Isosorbide MONOnitrate (24 HR) 30 MG TAB.ER.24H PO SCH (08:20)
[2021-06-20] MEDS: Metoprolol XL (24 HR) Succ 50 MG TAB.ER.24H PO SCH (08:20)
[2021-06-20] MEDS: Aspirin Enteric Coated 81 MG Tablet PO SCH (08:20)
[2021-06-20] MEDS: Insulin LISPRO 300 UNITS/3 ML VIAL SUBQ SCH ×3 (08:21→16:27)
[2021-06-20] MEDS: *HR* Ticagrelor 90 MG TABLET PO SCH (08:21)
[2021-06-20] MEDS ORDERED: 0.9 % Sodium Chloride 1,000 ML IVC SCH ×2 (10:15→11:45)
[2021-06-20] MEDS ORDERED: Albumin 25% 25gram/100mL 25 GM/100 ML IV.SOLN IVPB SCH (11:45)
[2021-06-20 16:28] VITALS: BP 151/83; PULSE 85; TEMP 97.7; O2SAT 96
== END 2021-06-20 16:55 | disposition short-term general hospital (02) | DRG 194 ==
LOC: 2NENU → SUATTDRO 12:11
PROVIDERS: ADMIT Family Medicine; ATTEND Internal Medicine